=== PATIENT | female | born 1950 | race Caucasian/White ===

== ENCOUNTER → 2016-08-29 | Outpatient (CLI) | payer OTHER ==
[~2016-08-29] MED LIST: CALC1TAB62 PO; CALC1TAB9 PO; CALC500C3 PO; IBUP1CAP9 PO; MAGN200T3; MULT-506 PO; OMEP20TA PO
[2016-08-29 10:00] LABS: BASO % 1.4 %; BASO ABS # 0.09 K/uL (0-0.2); COMPLETE YES; EOS % 2.9 %; HEMATOCRIT 44.6 % (37-47); IG% 0.2 %; LYMPH % 37.1 %; LYMPH ABS # 2.34 K/uL (1.2-3.4); MEAN CELL VOLUME 94.9 fL (80-100); MEAN CORPUSCULAR HEMOGLOBIN 32.1 pg (25-34); MEAN CORPUSCULAR HGB CONC 33.9 g/dl (32-36); MEAN PLATELET VOLUME 10.6 fL (7.4-10.4); MONO % 4.8 %; NEUT % 53.6 %; PLATELET COUNT 257 K/uL (130-400)
[2016-08-29 10:33] LABS: ESTIMATED AVERAGE GLUCOSE 111 mg/dl; HA1C FLAG Normal (Normal)
[2016-08-29 12:56] LABS: ALKALINE PHOSPHATASE 83 U/L (45-117); ALT/SGPT 30 U/L (12-78); AST/SGOT 22 U/L (15-37); BLOOD UREA NITROGEN 11 mg/dl (7-18); BUN/CREATININE RATIO 15.1 (10-20); C-REACTIVE PROTEIN < 0.29 mg/dl (0-0.29); CALCIUM 8.8 mg/dl (8.5-10.1); CARBON DIOXIDE 28 mmol/L (21-32); CHLORIDE 110 mmol/L (98-107); CHOLESTEROL 233 mg/dl (0-200); CREATININE 0.76 mg/dl (0.60-1.20); GLUCOSE 90 mg/dl (70-99); POTASSIUM 4.5 mmol/L (3.5-5.1); SODIUM 144 mmol/L (136-145); TRIGLYCERIDES 145 mg/dl (0-150); VERY LOW DENSITY LIPOPROT CALC 29 mg/dl
[2016-08-29 13:04] LABS: ALB/GLOB RATIO 0.9 (0.9-2); HDL CHOLESTEROL 47 mg/dl; LDL CHOLESTEROL CALCULATED 157 mg/dl
== END | disposition home or self-care (01) ==
LOC: C.LAB 08:43
PROVIDERS: ATTEND Family Medicine
DX: R73.09 Other abnormal glucose (principal); E55.9 Vitamin D deficiency, unspecified; D51.9 Vitamin B12 deficiency anemia, unspecified

== ENCOUNTER → 2016-10-23 | Outpatient (CLI) | payer OTHER ==
--- NOTE | 2016-10-24 12:19 | MAMMOGRAPHY REPORT ---
BILATERAL DIGITAL SCREENING MAMMOGRAM TOMOSYNTHESIS WITH CAD: 10/23/2016 CLINICAL HISTORY: Routine screening. Patient has no complaints. TECHNIQUE: Breast tomosynthesis in addition to standard 2D mammography was performed. Current study was also evaluated with a Computer Aided Detection (CAD) system. COMPARISON: Comparison is made to exams dated: 10/23/2015 mammogram, 10/19/2014 mammogram, 10/18/2013 m ammogram, 10/15/2012 ultrasound, 10/15/2012 mammogram, and 10/13/2011 mammogram - [facility] enter. BREAST COMPOSITION: The tissue of both breasts is heterogeneously dense, which may obscure small mas ses. FINDINGS: There are decreasing masses in the left breast. A 15 mm round circumscribed mass in the ri ght upper outer quadrant has been fluctuating in size compared to prior mammograms, and previously do cumented to represent a simple cyst on ultrasound. There is a stable grouping of round microcalcific ations in the right upper outer quadrant, which appears similar dating back to at least 10/04/2007, t herefore likely benign. Other scattered and loose groupings of calcifications are stable bilaterally . There are several other subcentimeter circumscribed masses scattered in the breasts, most likely b enign fibrocystic change. No suspicious spiculated or irregular mass, architectural distortion or cl uster of new, suspicious microcalcifications is seen. IMPRESSION: ACR BI-RADS CATEGORY 1: NEGATIVE There is no mammographic evidence of malignancy. A 1 year screening mammogram is recommended. The pa tient will receive written notification of the results. Approximately 10% of breast cancers are not detected with mammography. A negative mammographic report should not delay biopsy if a clinically suggestive mass is present. Randi Mc M.D. ay/:10/23/2016 17:11:07 Hand Molder Meat: Diamond NAVARRO(Mary)(Jan), [facility] letter sent: Normal 1/2 BI-RADS Code: ACR BI-RADS Category 1: Negative
== END | disposition home or self-care (01) ==
LOC: C.MAMM 12:02
PROVIDERS: ATTEND Obstetrics & Gynecology
DX: Z12.31 Encounter for screening mammogram for malignant neoplasm of breast (principal)

== ENCOUNTER → 2016-12-04 | Outpatient (CLI) | payer OTHER ==
[2016-12-04 10:34] LABS: BASO % 1.1 %; BASO ABS # 0.08 K/uL (0-0.2); COMPLETE YES; EOS % 3.7 %; IG% 0.1 %; LYMPH % 33.6 %; LYMPH ABS # 2.35 K/uL (1.2-3.4); MEAN CORPUSCULAR HEMOGLOBIN 33.3 pg (25-34); MEAN PLATELET VOLUME 10.7 fL (7.4-10.4); MONO % 4.3 %; NEUT % 57.2 %; PLATELET COUNT 245 K/uL (130-400); RED BLOOD COUNT 4.63 M/uL (4.2-5.4); WHITE BLOOD COUNT 6.99 K/uL (4.8-10.8)
[2016-12-04 10:49] LABS: ALB/GLOB RATIO 0.9 (0.9-2); ALT/SGPT 27 U/L (12-78); BLOOD UREA NITROGEN 14 mg/dl (7-18); BUN/CREATININE RATIO 17.8 (10-20); CALCIUM 9.4 mg/dl (8.5-10.1); CARBON DIOXIDE 29 mmol/L (21-32); CHLORIDE 107 mmol/L (98-107); CREATININE 0.76 mg/dl (0.60-1.20); GLUCOSE 92 mg/dl (70-99); POTASSIUM 4.4 mmol/L (3.5-5.1); SODIUM 141 mmol/L (136-145)
[2016-12-04 10:55] LABS: ALKALINE PHOSPHATASE 88 U/L (45-117); AST/SGOT 20 U/L (15-37); FERRITIN 302.2 ng/ml (8.0-388.0); RHEUMATOID FACTOR < 10.0 U/mL (0-15); TOTAL IRON BINDING CAPACITY 268 mcg/dl (250-450)
[2016-12-06 01:53] LABS: GLIADIN DEAMIDATED IgA AB 9 UNITS (<20); GLIADIN DEAMIDATED IgG AB 4 UNITS (<20)
[2016-12-10 04:30] LABS: 18KDIGG BAND NONREACTIVE (NONREACTIVE); 23KDIGG BAND NONREACTIVE (NONREACTIVE); 23KDIGM BAND NONREACTIVE (NONREACTIVE); 28KDIGG BAND NONREACTIVE (NONREACTIVE); 30KDIGG BAND NONREACTIVE (NONREACTIVE); 39KDIGG BAND NONREACTIVE (NONREACTIVE); 39KDIGM BAND NONREACTIVE (NONREACTIVE); 41KDIGG BAND NONREACTIVE (NONREACTIVE); 41KDIGM BAND NONREACTIVE (NONREACTIVE); 45KDIGG BAND NONREACTIVE (NONREACTIVE); 58KDIGG BAND NONREACTIVE (NONREACTIVE); 66KDIGG BAND NONREACTIVE (NONREACTIVE); 93KDIGG BAND NONREACTIVE (NONREACTIVE)
--- NOTE | 2016-12-17 10:32 | CODING QUERY MEDICAL NECESSITY ---
SUPPORTING DIAGNOSIS NEEDED Dr. Lunsford, A supporting diagnosis is required for the test/procedure performed on this patient in order for us to be reimbursed by the patient's insurance. Please provide a supporting diagnosis for the following test/procedure listed below next to the test name along with your signature. *If there is no additional diagnosis for this patient that would support the following test/procedure please document that below next to the test/procedure. Test(s)/Procedure(s) that require a supporting diagnosis: * ([id number]) B12 VITAMIN LEVEL DIAGNOSIS: DATE OF SERVICE: 12/04/16 Provider Signature: Date: Thank you Demetrius Ramirez [facility] Information Management Once completed, please kindly fax back to [phone] For questions please call [phone]
== END | disposition home or self-care (01) ==
LOC: C.LAB 09:08
PROVIDERS: ATTEND Family Medicine
DX: R53.83 Other fatigue (principal); M25.50 Pain in unspecified joint

== ENCOUNTER → 2016-12-25 | Day surgery (SDC) | payer OTHER ==
[~2016-12-25] VITALS: Ht 160 cm; Wt 97.2 kg
[~2016-12-25] MED LIST changes: +ATROPINE SULFATE 0.1 MG/ML 5ML SYR IV PRN; +DEXAMETHASONE SOD INJ 4 MG/ML VIAL ONE; +EpHEDrine SULFATE INJ 50 MG/ML AMP IV PRN; +FENTANYL CITRATE INJ 50 MCG/1 ML 2 ML VIAL IV PRN; +FENTANYL CITRATE INJ 50 MCG/1 ML 2 ML VIAL ONE; +IBUPROFEN 600 MG TAB PO PRN; +KETOROLAC TROMETHAMINE 30 MG/ML VIAL IV. PRN; +KETOROLAC TROMETHAMINE 30 MG/ML VIAL ONE; +LABETALOL HCL IV 5 MG/ML 20ML IV ONE; +LACTATED RINGER'S 1000ML 1,000 ML IV SCH; +LIDOCAINE HCL 2% 2 ML VIAL (20MG/ML) ONE; +ONDANSETRON INJ 2 MG/ML 2 ML VIAL IV PRN; +ONDANSETRON INJ 2 MG/ML 2 ML VIAL ONE; +OXYCODONE/ACETAMINOPHEN 5-325 TAB PO PRN; +PROMETHAZINE HCL INJ 6.25 MG in SODIUM CHLORIDE 0.9% 50ML 50 ML IV PRN; +PROPOFOL IV EMULSION 10 MG/ML 20 ML VIAL IV ONE; +RANITIDINE HCL 25 MG/ML INJ ONE; +SODIUM CHLORIDE 0.9% 1000ML 1,000 ML IV SCH
[2016-12-25 06:29] VITALS: Ht 160 cm; Wt 97.2 kg
--- NOTE | 2016-12-25 07:05 | History & Physical Bridge - SC ---
H&P Re-Evaluation Bridge Note: I have examined the patient, reviewed the History & Physical and in the interval since the performance of the History & Physical I have noted the following changes of clinical significance: No changes noted Did have diarrhea in response to the cytotec. No bleeding.
--- NOTE | 2016-12-25 07:41 | [facility] Operative Report ---
Operative Report Operative Date Dec 25, 2016. Pre-Operative Diagnosis Post Menopausal Bleeding, Abnormal Ultrasound of Uterus Post-Operative Diagnosis same, endometrial polyp Procedure(s) Performed #1 dilation and curettage #2 hysteroscopy #[address] Rick Jackson Cavity Pump Operator Surgeon(s) 0 Estimated Blood Loss 0 Findings Uterus sounds to 8 cm. Normal tubal ostia bilaterally. Saline hysteroscopic fluid deficit 85 cc. Uterine cavity with evidence of polyps at the fundus. Fluids (cc crystalloids) 500 Specimens Endometrial curettings and polyp Drains none Anesthesia Gen. Complication(s) None Disposition Recovery Room / PACU Indications 66-year-old with postmenopausal bleeding and ultrasound suggestive of possibly 2 polyps who desired definitive surgical management. Description of Procedure Patient taken to the operating room and identified. After adequate general anesthesia was obtained she space in the dorsolithotomy position and prepped and draped in the usual sterile fashion. The bladder was drained for clear yellow urine. Weighted speculum and anterior retractor were used to visualize the cervix which was grasped with anterior lip with an Allis clamp. The cervix was sequentially dilated using Hegar dilators to 23. The hysteroscope primed with saline media was gently placed through cervical os into the uterine cavity with the findings as noted above. Using a sharp curet as well as a polyp forcep the uterus was cleared of its contents. This was confirmed using the hysteroscope and camera. All the specimens were sent to pathology. At this point procedure was terminated. All vaginal and she was removed. The patient was returned to the supine position. She was working for anesthesia and transferred to the recovery room in stable condition. All sponge lap and needle counts were correct 2. I attest to the content of the Intraoperative Record and any orders documented therein. Any exceptions are noted below.
--- NOTE | 2016-12-25 07:43 | Discharge Instructions ---
Discharge Instructions Date of Service Dec 25, 2016. Admission Reason for Admission: Post Menopausal Bleeding, Abnormal Us Of Uterus Discharge Discharge Diagnosis / Problem: after surgery Discharge Goals Goal(s): Routine recovery after surgery Activity Recommendations Activity Limitations: as noted below . Instructions / Follow-Up Instructions / Follow-Up ACTIVITY RECOMMENDATIONS: * Avoid tampons, douching, hot tubs, pools, and intercourse until bleeding has stopped. * May shower as usual. * No strenuous activity for 24-48 hours. After 24-48 hours, you may do anything you feel like doing (driving and sports are okay). SPECIAL CARE INSTRUCTIONS: Special Diet: * Mild nausea may occur in the immediate post-operative period. * Take clear liquids such as tea, cola or bouillon until all nausea has subsided; you may then resume your normal diet. Special Care: * Light bleeding and vaginal spotting can last from a few days to 3-4 weeks. Call your doctor if bleeding becomes heavier than the heaviest part of your period. * Check your temperature twice a day for one week. If it goes above 100.4 degrees Fahrenheit (38.0 Celsius), notify your doctor. * Call your doctor's office for an appointment for 2-4 weeks after your surgery. FOLLOW-UP VISIT: Call your doctor's office for an appointment for 2-4 weeks after your surgery. Current Hospital Diet Patient's current hospital diet: Discharge Diet Recommended Diet: Regular Diet Procedures Procedures Performed: #1 dilation and curettage #2 hysteroscopy #3 endometrial polypectomy Pending Studies Studies pending at discharge: yes List of pending studies: pathology Medical Emergencies . Who to Call and When: Medical Emergencies: If at any time you feel your situation is an emergency, please call 911 immediately. . Non-Emergent Contact Non-Emergency issues call your: [employer] Tractor Operator . . "Provider Documentation" section prepared by Kate Jackson. . VTE Core Measure Inpt VTE Proph given/why not?: Treatment not indicated
--- NOTE | 2016-12-25 08:25 | Anesthesiology Progress Note ---
Anesthesia Post Op Note Date & Time Dec 25, 2016 at 08:25 Vital Signs Pain Intensity: 0 Vital Signs Past 12 Hours Date Time Temp Pulse Resp B/P (MAP) Pulse Ox O2 Delivery O2 Flow Rate FiO2 12/25/16 08:21 166/91 12/25/16 08:18 85 13 94 12/25/16 08:18 85 13 12/25/16 08:17 37.2 83 12 181/89 96 Room Air 12/25/16 08:16 167/101 12/25/16 08:13 89 23 96 12/25/16 08:13 89 23 12/25/16 08:11 181/89 12/25/16 08:08 84 12 96 12/25/16 08:08 83 12 12/25/16 08:06 170/84 12/25/16 08:03 81 21 99 12/25/16 08:03 81 21 12/25/16 08:01 168/91 12/25/16 07:58 88 15 99 12/25/16 07:58 88 15 12/25/16 07:57 80 11 98 12/25/16 07:57 80 11 12/25/16 07:56 176/94 12/25/16 07:52 83 14 12/25/16 07:52 14 12/25/16 07:51 174/95 12/25/16 07:47 83 14 12/25/16 07:47 84 14 97 12/25/16 07:46 171/98 12/25/16 07:43 174/97 12/25/16 07:42 84 12/25/16 07:42 37.0 84 12 174/97 97 Diffusion Mask 6 12/25/16 07:42 84 97 12/25/16 06:35 37 88 16 169/96 (120) 97 Room Air Notes Mental Status: alert / awake / arousable, participated in evaluation Pt Amnestic to Procedure: Yes Nausea / Vomiting: adequately controlled Pain: adequately controlled Airway Patency, RR, SpO2: stable & adequate BP & HR: stable & adequate Hydration State: stable & adequate Anesthetic Complications: no major complications apparent
[2016-12-25 08:29] VITALS: TEMP 36.8
[2016-12-25 08:57] VITALS: BP 168/83; PULSE 84; O2SAT 94
== END | disposition home or self-care (01) ==
LOC: X.SURG 06:17
PROVIDERS: ATTEND Obstetrics & Gynecology
DX: N95.0 Postmenopausal bleeding (principal); N84.0 Polyp of corpus uteri; R93.5 Abnormal findings on diagnostic imaging of other abdominal regions, including retroperitoneum; M19.90 Unspecified osteoarthritis, unspecified site; K21.0 Gastro-esophageal reflux disease with esophagitis; E78.00 Pure hypercholesterolemia, unspecified; Z83.6 Family history of other diseases of the respiratory system; Z82.49 Family history of ischemic heart disease and other diseases of the circulatory system; Z80.0 Family history of malignant neoplasm of digestive organs

== ENCOUNTER → 2017-05-19 | Outpatient (CLI) | payer OTHER ==
[~2017-05-19] MED LIST changes: -ATROPINE SULFATE 0.1 MG/ML 5ML SYR IV PRN; -DEXAMETHASONE SOD INJ 4 MG/ML VIAL ONE; -EpHEDrine SULFATE INJ 50 MG/ML AMP IV PRN; -FENTANYL CITRATE INJ 50 MCG/1 ML 2 ML VIAL IV PRN; -FENTANYL CITRATE INJ 50 MCG/1 ML 2 ML VIAL ONE; -IBUPROFEN 600 MG TAB PO PRN; -KETOROLAC TROMETHAMINE 30 MG/ML VIAL IV. PRN; -KETOROLAC TROMETHAMINE 30 MG/ML VIAL ONE; -LABETALOL HCL IV 5 MG/ML 20ML IV ONE; -LACTATED RINGER'S 1000ML 1,000 ML IV SCH; -LIDOCAINE HCL 2% 2 ML VIAL (20MG/ML) ONE; -ONDANSETRON INJ 2 MG/ML 2 ML VIAL IV PRN; -ONDANSETRON INJ 2 MG/ML 2 ML VIAL ONE; -OXYCODONE/ACETAMINOPHEN 5-325 TAB PO PRN; -PROMETHAZINE HCL INJ 6.25 MG in SODIUM CHLORIDE 0.9% 50ML 50 ML IV PRN; -PROPOFOL IV EMULSION 10 MG/ML 20 ML VIAL IV ONE; -RANITIDINE HCL 25 MG/ML INJ ONE; -SODIUM CHLORIDE 0.9% 1000ML 1,000 ML IV SCH
[2017-05-19 09:31] LABS: BASO % 1.3 %; BASO ABS # 0.08 K/uL (0-0.2); EOS ABS # 0.24 K/uL (0-0.5); HEMATOCRIT 43.8 % (37-47); LYMPH % 40.8 %; LYMPH ABS # 2.45 K/uL (1.2-3.4); MEAN CELL VOLUME 93.4 fL (80-100); MEAN CORPUSCULAR HGB CONC 34.2 g/dl (32-36); MEAN PLATELET VOLUME 10.8 fL (7.4-10.4); MONO % 5.3 %; MONO ABS # 0.32 K/uL (0.11-0.59); NEUT % 48.6 %; NEUT ABS # 2.92 K/uL (1.4-6.5); PLATELET COUNT 245 K/uL (130-400); RED CELL DISTRIBUTION WIDTH CV 12.9 % (11.5-14.5); RED CELL DISTRIBUTION WIDTH SD 43.9 fL (36.4-46.3); WHITE BLOOD COUNT 6.01 K/uL (4.8-10.8)
[2017-05-19 09:46] LABS: HEMOGLOBIN A1C 5.4 % (4.5-5.6)
[2017-05-19 09:48] LABS: ALBUMIN 3.4 gm/dl (3.4-5.0); ALKALINE PHOSPHATASE 77 U/L (45-117); ALT/SGPT 29 U/L (12-78); AST/SGOT 19 U/L (15-37); BLOOD UREA NITROGEN 9 mg/dl (7-18); CALCIUM 8.8 mg/dl (8.5-10.1); CARBON DIOXIDE 28 mmol/L (21-32); CHOLESTEROL 212 mg/dl (0-200); GLUCOSE 91 mg/dl (70-99); LDL CHOLESTEROL CALCULATED 139 mg/dl; POTASSIUM 4.2 mmol/L (3.5-5.1); SODIUM 141 mmol/L (136-145); TOTAL PROTEIN 7.1 gm/dl (6.4-8.2); URIC ACID 4.2 mg/dl (2.6-7.2)
[2017-05-19 09:57] LABS: TRANSFERRIN 181 mg/dl (200-360)
== END | disposition home or self-care (01) ==
LOC: C.LAB 08:22
PROVIDERS: ATTEND Family Medicine
DX: E88.81 Metabolic syndrome and other insulin resistance (principal); E55.9 Vitamin D deficiency, unspecified; D51.9 Vitamin B12 deficiency anemia, unspecified; E78.9 Disorder of lipoprotein metabolism, unspecified; R53.83 Other fatigue

== ENCOUNTER → 2017-05-25 | Outpatient (CLI) | payer OTHER ==
--- NOTE | 2017-05-25 14:59 | DIAGNOSTIC IMAGING REPORT ---
PELVIS ONE VIEW, LEFT HIP 2 VIEWS HISTORY: Fall. Left hip pain. COMPARISON: None. FINDINGS: There is no fracture or dislocation. Soft tissues are unremarkable. Degenerative changes within the bilateral sacroiliac joints. The sacrum appears intact. IMPRESSION: No fracture or dislocation within the pelvis or hips. Electronically signed by: Dio Miller M.D. 05/25/2017 2:58 PM Dictated Date/Time: 05/25/2017 2:57 PM
== END | disposition home or self-care (01) ==
LOC: C.RAD 14:34
PROVIDERS: ATTEND Family Medicine
DX: M25.552 Pain in left hip (principal); W19.XXXA Unspecified fall, initial encounter

== ENCOUNTER → 2017-06-15 | Outpatient (CLI) | payer OTHER | END | disposition home or self-care (01) | LOC: C.LABSPEC 17:57 | PROVIDERS: ATTEND Obstetrics & Gynecology | DX: R30.0 Dysuria (principal) ==

== ENCOUNTER → 2017-10-26 | Outpatient (CLI) | payer OTHER ==
[~2017-10-26] MED LIST changes: -CALC1TAB62 PO; -CALC500C3 PO; -IBUP1CAP9 PO; +IBUP200C80 PO; -MAGN200T3; -MULT-506 PO; +Q NASAL; +SERT25TA PO
--- NOTE | 2017-10-27 07:32 | MAMMOGRAPHY REPORT ---
BILATERAL DIGITAL SCREENING MAMMOGRAM TOMOSYNTHESIS WITH CAD: 10/26/2017 CLINICAL HISTORY: Routine screening. Patient has no complaints. TECHNIQUE: The study was acquired using full field digital technology and interpreted from soft copy. Breast tomosynthesis in addition to standard 2D mammography was performed. Current study was also ev aluated with a Computer Aided Detection (CAD) system. COMPARISON: Comparison is made to exams dated: 10/23/2016 mammogram, 10/23/2015 mammogram, 10/19/2014 m ammogram, 10/18/2013 mammogram, 10/15/2012 ultrasound, and 10/15/2012 mammogram - [facility]. BREAST COMPOSITION: The tissue of both breasts is heterogeneously dense, which may obscure small mass es. FINDINGS: There are multiple bilateral circumscribed masses in the breasts, which is a typically otf gn mammographic pattern. Many of the masses have decreased in size comparing to prior exams, suggest ing fluctuating cysts. There are stable benign-appearing microcalcifications in each upper outer anna drant. No new suspicious mass, architectural distortion or cluster of microcalcifications is seen. IMPRESSION: ACR BI-RADS CATEGORY 1: NEGATIVE There is no mammographic evidence of malignancy. A 1 year screening mammogram is recommended.( 019) The patient will receive written notification of the results. Some breast cancers are not detected with mammography. A negative mammographic report should not margie y biopsy if a clinically suggestive mass is present. Randi Mc M.D. ay/:10/26/2017 14:24:29 Seed Cleaner Operator: RT Celestino(R)(M), [facility] letter sent: Normal 1/2 BI-RADS Code: ACR BI-RADS Category 1: Negative
== END | disposition home or self-care (01) ==
LOC: C.MAMM 12:21
PROVIDERS: ATTEND Obstetrics & Gynecology
DX: Z12.31 Encounter for screening mammogram for malignant neoplasm of breast (principal)

== ENCOUNTER → 2017-11-16 | Outpatient (CLI) | payer OTHER ==
[2017-11-16 12:27] LABS: BASO ABS # 0.07 K/uL (0-0.2); EOS % 3.5 %; EOS ABS # 0.24 K/uL (0-0.5); HEMATOCRIT 40.4 % (37-47); HEMOGLOBIN 14.1 g/dL (12.0-16.0); IG# 0.01 K/uL (0.00-0.02); LYMPH ABS # 2.13 K/uL (1.2-3.4); MEAN CELL VOLUME 94.2 fL (80-100); MEAN CORPUSCULAR HEMOGLOBIN 32.9 pg (25-34); MEAN CORPUSCULAR HGB CONC 34.9 g/dl (32-36); MEAN PLATELET VOLUME 10.8 fL (7.4-10.4); MONO % 5.8 %; NEUT % 58.6 %; NEUT ABS # 4.02 K/uL (1.4-6.5); PLATELET COUNT 296 K/uL (130-400); RED CELL DISTRIBUTION WIDTH CV 12.9 % (11.5-14.5); WHITE BLOOD COUNT 6.87 K/uL (4.8-10.8)
[2017-11-16 12:51] LABS: HEMOGLOBIN A1C 5.4 % (4.5-5.6)
[2017-11-16 13:13] LABS: ALBUMIN 3.4 gm/dl (3.4-5.0); ALKALINE PHOSPHATASE 87 U/L (45-117); ALT/SGPT 25 U/L (12-78); AST/SGOT 18 U/L (15-37); BLOOD UREA NITROGEN 13 mg/dl (7-18); CALCIUM 8.8 mg/dl (8.5-10.1); CARBON DIOXIDE 24 mmol/L (21-32); CHOLESTEROL 246 mg/dl (0-200); CREATININE 0.81 mg/dl (0.60-1.20); GLUCOSE 90 mg/dl (70-99); LDL CHOLESTEROL CALCULATED 169 mg/dl; POTASSIUM 4.1 mmol/L (3.5-5.1); SODIUM 139 mmol/L (136-145); TOTAL PROTEIN 7.2 gm/dl (6.4-8.2); TRANSFERRIN 191 mg/dl (200-360); URIC ACID 4.5 mg/dl (2.6-7.2)
== END | disposition home or self-care (01) ==
LOC: C.LAB 09:42
PROVIDERS: ATTEND Family Medicine
DX: R73.09 Other abnormal glucose (principal); E55.9 Vitamin D deficiency, unspecified; D51.9 Vitamin B12 deficiency anemia, unspecified; E78.9 Disorder of lipoprotein metabolism, unspecified; R53.83 Other fatigue

== ENCOUNTER 2024-08-18 11:57 | Inpatient (IN) ==
--- NOTE | 2024-08-18 12:24 | Emergency Department Note ---
Impression & Plan Ambulatory dysfunction, Left knee pain ED Provider Note NAME: JAXON MARCH AGE: 74 SEX: F : 1950 ARRIVES VIA: Ambulance INFORMANT: [Patient] ED PROVIDER(S): [Sandro Dsouza MD] CHIEF COMPLAINT: Knee pain HISTORY OF PRESENT ILLNESS: Patient is a 74-year-old female who states that she has been having left knee pain now for about 12 days. She has been doing some home PT. In the last week, the pain has worsened. The pain is primarily in the back of the left knee. She spoke with her doctor's office and was told to present for an ultrasound to rule out DVT. She states that she was putting on her shoes prior to arrival and lifted her left leg over her right leg. She had a sudden snap felt in the left knee and had severe pain. She presents by ambulance. There was no fall. PMHx/PSHx/Social Hx: See Below PHYSICAL EXAM: GENERAL: Patient is in no acute distress. HEENT: No acute trauma, normocephalic atraumatic, mucous membranes moist, no nasal congestion. EXTREMITIES: No cyanosis. There is pain with movement of the left knee, there is no gross deformity. She is mildly diffusely tender. No evidence for distal left lower extremity neurovascular compromise. The left leg is swollen somewhat but fairly similar to the right. NEUROLOGIC: Oriented x 3, no acute motor or sensory deficits, no focal weakness. SKIN: No jaundice, no diaphoresis. DIFFERENTIAL DIAGNOSIS: Fracture, sprain, strain, hemarthrosis, tendon or ligamentous injury, DVT, among others. EMERGENCY DEPARTMENT PROCEDURES: MEDICAL DECISION MAKING: The patient presents with severe left knee pain after trying to put on her shoes. The pain came on quickly and was severe and was associated with a snapping sensation. She had been having some difficulty with the left knee for a week or so prior to this acute discomfort. On exam, there was no cellulitis. There was no evidence of for left knee dislocation. No evidence for left lower extremity neurovascular compromise. The patient was given a dose of oral losartan, 25 mg. This was given to help control her blood pressure. She received IV Toradol and IV Tylenol. She was given an ice pack. Left knee film does not show any obvious fracture. No large joint effusion. Left leg ultrasound does not show DVT. Left knee CT does show some arthritis but there was no significant finding on the CT that would explain her discomfort. The patient is unable to ambulate as a result of the severe pain. She is not safe for discharge home. She will require a hospital stay, pain control and orthopedic consult. I spoke with the patient and case management, the on-call hospitalist was consulted. Currently, the cause for her severe pain and inability ambulate is unclear. Prior/Outside records/notes reviewed: Today's EMS notes describing her presentation and transport to this hospital. Imaging/x-ray results per my interpretation: Films of the left knee do not show any obvious fracture or dislocation. There is no large joint effusion. Chronic Medical/Social conditions affecting care: Advanced age. Care/Management discussed with: Case management and the on-call hospitalist. Level of care consideration(s): After review of the information above and other included data: --I believe the patient requires escalation of care to admission DISPOSITION: Admission Past Med/Surg History Problem List Left knee pain (Acute) Ambulatory dysfunction (Acute) Left knee DJD Left knee pain Ruptured Bakers cyst Breast lump Paroxysmal SVT (supraventricular tachycardia) Situational stress Metabolic syndrome Hypertension Knee pain, acute Recurrent urinary tract infection GERD (gastroesophageal reflux disease) (Acute) Hyperlipidemia Supraventricular tachycardia, paroxysmal MGUS (monoclonal gammopathy of unknown significance) PVCs (premature ventricular contractions) Osteopenia Gait instability Mitral regurgitation Hemochromatosis Fatigue Situational stress Anxiety Urinary incontinence Synovitis Macular degeneration Lumbar spondylosis Cervical disc disease Bilateral carotid artery disease Degenerative arthritis of knee, bilateral Vaginal atrophy Bursitis of hip, right Palpitations LVH (left ventricular hypertrophy) 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 Obesity Medical History Cataract Near syncope Knee injury Fall Impaired glucose tolerance Urinary tract infection Diastolic dysfunction Vaginal lesion Endometrial polyp TSH excess Hypertensive urgency Hypercholesterolemia Allergic rhinitis Osteoarthritis Surgical History History of bilateral cataract extraction H/O foot surgery History of tooth extraction History of dilatation and curettage Family History Mother Depression Anxiety AA (alcohol abuse) Hypertension COPD (chronic obstructive pulmonary disease) Father Coronary heart disease, Onset Age: 49 Depression Bladder cancer Alcoholism /alcohol abuse Myocardial infarction Dyslipidemia Uncle Colorectal cancer Grandmother (Maternal) Diabetes Osteoarthritis Grandmother (Paternal) Stroke Aunt Heart disease Brother Parkinson disease Hypertension Brother Suicide Epilepsy Sister Depression Hypertension Denies family history of Ovarian cancer Breast cancer Social History Smoking Status: Never smoker Second Hand Exposure: No; Do You Dip or Chew Tobacco: No; Hx Alcohol Use: No Hx Substance Use: No Preferred Language: Russian Communication Ability: Effective Visual Impairment: Diminished Hearing Ability: Normal Lead 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 Required: No Beliefs That Will Affect Care: None marital status: Current Living Situation: Spouse current occupational status: retired How many Children do You have: 2 Other Information That Helps Us Care for You: No Feels Safe at Home: Yes Safety Concerns: Feels Safe At This Time Childhood Exposure to Second-Hand Smoke: Yes Diet: regular caffeine: Yes Dental Care, Regularly: Yes Physical Activity Frequency: 5-6 Times per Week Seatbelt Use: always Sunscreen Use: Yes Assistive Devices: None Allergies Allergies Allergy/AdvReac Type Severity Reaction Status Date / Time Sulfa (Sulfonamide Allergy Intermediate SWELLING/ Verified 08/18/24 15:46 Antibiotics) ITCHY alprazolam Allergy Unknown Unknown Verified 08/18/24 15:46 Penicillins Allergy Unknown PER PT Verified 08/18/24 15:46 "TESTED NEG, ABLE TO TAKE" erythromycin base AdvReac Intermediate VOMITING Verified 08/18/24 15:46 levothyroxine AdvReac Intermediate palpitation Verified 08/18/24 15:46 s Macrolide Antibiotics AdvReac Intermediate VOMITING Verified 08/18/24 15:46 pravastatin AdvReac Intermediate joint/ Verified 08/18/24 15:46 muscle pain and cramping ciprofloxacin AdvReac Unknown Unknown Verified 08/10/24 11:51 hydrochlorothiazide AdvReac Unknown Unknown Verified 08/10/24 11:51 [From Aldactazide] lisinopril AdvReac Unknown Unknown Verified 08/10/24 11:51 niacin AdvReac Unknown Unknown Verified 08/10/24 11:51 risedronate sodium AdvReac Unknown Unknown Verified 08/10/24 11:51 [From Actonel] simvastatin AdvReac Unknown Unknown Verified 08/10/24 11:51 spironolactone AdvReac Unknown Unknown Verified 08/10/24 11:51 [From Aldactazide] Home Meds Home Medications Medication Instructions Recorded Confirmed calcium 315 mg (as 1 tab PO DAILY ##0 12/25/16 08/18/24 citrate)-vitamin D3 6.25 mcg (250 unit) tablet [id number] 5 mg-zeaxanth 1 cap PO DAILY 04/03/20 08/18/24 1 mg-bilberry 7.5 mg-herbal capsule ([employer] Formula) aspirin 81 mg tablet,delayed 81 mg PO QDD 04/10/20 08/18/24 release ibuprofen 200 mg tablet (Advil) 200 mg PO QAM 12/06/20 08/18/24 calcium carbonate (Tums) 400 mg PO HS dyspepsia 04/09/21 08/18/24 cephalexin 500 mg capsule 500 mg PO BID PRN RECURRENT UTI'S 08/18/24 08/18/24 cholecalciferol (vitamin D3) 25 75 mcg PO DAILY 08/18/24 08/18/24 mcg (1,000 unit) capsule (Vitamin D3) losartan 25 mg tablet 25 mg PO QAM 08/18/24 08/18/24 rosuvastatin 5 mg tablet (Crestor) 5 mg PO 3XWK 08/18/24 08/18/24 Previous Rx's Medication Instructions Recorded nystatin-triamcinolone 100,000 1 applic topical BID PRN itching 12/12/22 unit/gram-0.1 % topical ointment #15 grams omeprazole 20 mg capsule,delayed 20 mg PO DAILY #90 tabs 08/08/24 release metoprolol tartrate 25 mg tablet 12.5 mg (1/2 x 25 mg) PO BID 08/10/24 palpitations #60 tabs Results & Data (ED) Vital Signs Vital Signs - 24 hr 08/18/24 12:07 08/18/24 12:24 08/18/24 12:30 Temperature 37.0 C Temperature Source Oral Pulse Rate 108 H 101 H Pulse Rate [Apical] Respiratory Rate 28 H Respiratory Effort / Characteristics Non-Labored Spontaneous Respiratory Depth Normal Blood Pressure 207/138 H Blood Pressure [Right Arm] 183/108 H Blood Pressure Mean 161 Blood Pressure Mean [Right Arm] 133 Blood Pressure Position Semi-fowlers Blood Pressure Position [Right Arm] Pulse Oximetry 94 Oxygen Delivery Method Room Air Sepsis Recent Fever Within 48 Hours No Sepsis New/Unexplained Change in Mental Status N/A Sepsis Action Taken by Nursing Physician Notified 08/18/24 13:30 08/18/24 15:00 08/18/24 16:03 Temperature Temperature Source Pulse Rate 95 H 91 H Pulse Rate [Apical] 88 Respiratory Rate 18 16 18 Respiratory Effort / Characteristics Respiratory Depth Blood Pressure 172/100 H 178/102 H Blood Pressure [Right Arm] 158/87 H Blood Pressure Mean 124 127 Blood Pressure Mean [Right Arm] 110 Blood Pressure Position Blood Pressure Position [Right Arm] Semi-fowlers Pulse Oximetry 93 92 97 Oxygen Delivery Method Room Air Sepsis Recent Fever Within 48 Hours Sepsis New/Unexplained Change in Mental Status Sepsis Action Taken by Nursing 08/18/24 16:29 Temperature Temperature Source Pulse Rate 88 Pulse Rate [Apical] Respiratory Rate Respiratory Effort / Characteristics Respiratory Depth Blood Pressure Blood Pressure [Right Arm] Blood Pressure Mean Blood Pressure Mean [Right Arm] Blood Pressure Position Blood Pressure Position [Right Arm] Pulse Oximetry Oxygen Delivery Method Sepsis Recent Fever Within 48 Hours Sepsis New/Unexplained Change in Mental Status Sepsis Action Taken by [facility] Medications Current Medication List: was personally reviewed by [facility] Laboratory Data 08/19/24 08:19 08/19/24 08:19 Administered Medications Acetaminophen (Acetaminophen 500 Mg Tab) 1,000 mg PO TID [facility] Stop: 09/17/24 20:59 Last Admin: 08/19/24 08:04 Dose: Not Given Documented By: Admin: 08/18/24 20:12 Dose: 1,000 mg Documented By: CHRIS Calcium Carbonate (Calcium Carbonate 500 Mg Chewable Tab) 400 mg PO HS [facility] Stop: 09/17/24 20:59 Last Admin: 08/18/24 20:11 Dose: 400 mg Documented By: CHRIS Calcium/Vitamin D (Calcium 600mg + Vit D 400 Iu Tab) 1 tab PO DAILY [facility] Stop: 09/18/24 08:59 Last Admin: 08/19/24 08:44 Dose: 1 tab Documented By: CHERYL Ketorolac Tromethamine (Ketorolac Tromethamine 15 Mg/Ml Vial) 15 mg IV Q6H PRN PRN Reason: Pain Stop: 08/23/24 18:35 Last Admin: 08/19/24 04:41 Dose: 15 mg Documented By: ALYCIA Losartan Potassium (Losartan Potassium 25 Mg Tab) 25 mg PO QPM GODWIN Stop: 09/17/24 19:29 Last Admin: 08/18/24 20:11 Dose: Not Given Documented By: Admin: 08/18/24 19:42 Dose: 25 mg Documented By: CHRIS Metoprolol Tartrate (Metoprolol Tartrate 25 Mg Tab) 12.5 mg PO BID GODWIN Stop: 09/17/24 20:59 Last Admin: 08/19/24 08:42 Dose: Not Given Documented By: Admin: 08/18/24 20:11 Dose: Not Given Documented By: CHRIS Multivitamins/Minerals (Cerovite Adv Formula Tab) 1 tab PO DAILY GODWIN Stop: 09/18/24 08:59 Last Admin: 08/19/24 08:43 Dose: 1 tab Documented By: CHERYL Pantoprazole Sodium (Pantoprazole 40 Mg Tab) 40 mg PO DAILY GODWIN Stop: 09/18/24 08:59 Last Admin: 08/19/24 08:44 Dose: 40 mg Documented By: CHERYL Rosuvastatin Calcium (Rosuvastatin Calcium 5 Mg Tab) 5 mg PO MoWeFr@0900 GODWIN Stop: 09/18/24 08:59 Last Admin: 08/19/24 08:44 Dose: 5 mg Documented By: CHERYL Tramadol HCl (Tramadol Hcl 50 Mg Tablet) 50 mg PO Q6H PRN PRN Reason: Pain Stop: 09/17/24 18:35 Last Admin: 08/18/24 22:29 Dose: 50 mg Documented By: CHRIS Vitamin D (Cholecalciferol 25 Mcg (1000 Units) Tab) 75 mcg PO DAILY GODWIN Stop: 09/18/24 08:59 Last Admin: 08/19/24 08:43 Dose: 75 mcg Documented By: CHERYL Discontinued Medications Acetaminophen (Ofirmev) 1,000 mg in 100 mls @ 400 mls/hr IV NOW STA Stop: 08/18/24 12:32 Last Infusion: 08/18/24 12:50 Dose: Infused Documented By: Admin: 08/18/24 12:28 Dose: 400 mls/hr Documented By: MMF Ketorolac Tromethamine (Ketorolac Tromethamine 15 Mg/Ml Vial) 15 mg IV NOW STA Stop: 08/18/24 12:19 Last Admin: 08/18/24 12:28 Dose: 15 mg Documented By: JAZMÍN Ketorolac Tromethamine (Ketorolac Tromethamine 15 Mg/Ml Vial) 15 mg IV NOW ONE Stop: 08/18/24 16:24 Last Admin: 08/18/24 17:15 Dose: 15 mg Documented By: DAVID Losartan Potassium (Losartan Potassium 25 Mg Tab) 25 mg PO NOW STA Stop: 08/18/24 12:19 Last Admin: 08/18/24 12:28 Dose: 25 mg Documented By: JAZMÍN Losartan Potassium (Losartan Potassium 25 Mg Tab) 25 mg PO ONE ONE Stop: 08/19/24 08:16 Last Admin: 08/19/24 08:42 Dose: 25 mg Documented By: CHERYL Pantoprazole Sodium (Pantoprazole 40 Mg Tab) 40 mg PO NOW STA Stop: 08/18/24 19:09 Last Admin: 08/18/24 19:22 Dose: 40 mg Documented By: CHRIS Discharge Plan Visit Data Chief Complaint: Knee Injury/Pain Stated Complaint: KNEE PAIN ED Provider: Sandro Dsouza Discharge Problem: Ambulatory dysfunction, Left knee pain Patient Disposition: Admitted As Inpatient Condition: Fair Discharge Instructions Interventions: ED Discharge Assessment Last Done: 08/18/24 17:50 Discharge Problem: Left knee pain Qualifiers: Chronicity: acute Qualified Code(s): M25.562 - Pain in left knee
[2024-08-18] MEDS: LOSARTAN POTASSIUM 25 MG TAB PO STA (12:28)
[2024-08-18] MEDS: ACETAMINOPHEN 1,000 MG/100 ML VIAL IV STA (12:28)
[2024-08-18] MEDS: KETOROLAC TROMETHAMINE 15 MG/ML VIAL IV STA (12:28)
--- NOTE | 2024-08-18 13:25 | XRay Report ---
XR knee LT 1 or 2V routine CLINICAL HISTORY: pain, twisted COMPARISON: 01/28/2022 FINDINGS: There is mild osteoarthritis. There is a trace joint effusion. No fracture or dislocation. IMPRESSION: No fracture seen. ACT 112: Negative or not required by law. Electronically signed by: Rakesh Palencia M.D. 08/18/2024 1:23 PM
--- NOTE | 2024-08-18 14:56 | CT Scan Report ---
CT knee LT wo con HISTORY: 74 years-old Female severe pain, neg xrays in past acute severe pain of the left knee COMPARISON: Radiographs 08/18/2024 TECHNIQUE: Multiple axial CT images of the left knee were obtained without IV contrast. A dose loweri ng technique was used consistent with the principals of JAMARCUS. FINDINGS: Demineralized appearance of the bones. [id number] medial, mild lateral with moderate patellofem oral compartment osteoarthritis. No acute fracture, dislocation. 4 mm ossification within the posteri or medial joint space on image 40 of the sagittal series may represent a loose body. Tendons, ligamen ts and menisci are not well evaluated by CT technique. There is a small joint effusion. Trace Georges's cyst. Arterial calcifications. Mild nonspecific anterior subcutaneous edema. Superficial venous vari cosities are noted anteriorly. IMPRESSION: 1. No acute fracture or dislocation. 2. Tricompartmental osteoarthritis, moderate within the patellofemoral joint. 3. Small joint effusion. ACT 112: Negative or not required by law. The above report was generated using voice recognition software. It may contain grammatical, syntax o r spelling errors. Electronically signed by: Ramón Bailey M.D. 08/18/2024 2:55 PM
--- NOTE | 2024-08-18 14:59 | Ultrasound Report ---
LEFT LOWER EXTREMITY VENOUS DOPPLER HISTORY: swelling, pain COMPARISON STUDY: None FINDINGS: Duplex and color Doppler evaluation of the deep venous system of the left leg demonstrates no evidence of DVT. The major deep venous channels are patent and compressible. There is no occlusive disease or intraluminal filling defect identified. IMPRESSION: No evidence of DVT . ACT 112: Negative or not required by law. Electronically signed by: Neda Steen M.D. 08/18/2024 2:57 PM
[2024-08-18] MEDS: KETOROLAC TROMETHAMINE 15 MG/ML VIAL IV ONE (17:15)
[2024-08-18] MEDS ORDERED: MELATONIN 3 MG TAB PO PRN (18:36)
[2024-08-18] MEDS ORDERED: NYSTATIN/TRIAMCIN OINT 15 GM TUBE EXT PRN (18:36)
[2024-08-18] MEDS ORDERED: ALUMINUM/MAGNESIUM SUSP 30 ML UDC PO PRN (18:36)
[2024-08-18] MEDS ORDERED: MAGNESIUM HYDROXIDE SUSP 30 ML UDC PO PRN (18:36)
[2024-08-18] MEDS ORDERED: POLYETHYLENE (MIRALAX) 17 GM PACK PO PRN (18:36)
[2024-08-18] MEDS ORDERED: ONDANSETRON INJ 2 MG/ML 2 ML VIAL IV PRN (18:36)
[2024-08-18] MEDS: PANTOprazole 40 MG TAB PO STA (19:22)
[2024-08-18] MEDS: LOSARTAN POTASSIUM 25 MG TAB PO SCH (19:42)
[2024-08-18] MEDS: METOPROLOL TARTRATE 25 MG TAB PO SCH (20:11)
[2024-08-18] MEDS: CALCIUM CARBONATE 500 MG CHEWABLE TAB PO SCH (20:11)
[2024-08-18] MEDS: ACETAMINOPHEN 500 MG TAB PO SCH (20:12)
--- NOTE | 2024-08-18 20:30 | History & Physical Report ---
Date of Service August 18, 2024 Assessment & Plan (1) Paroxysmal SVT (supraventricular tachycardia): (2) Hypertension: (3) Knee pain, acute: (4) GERD (gastroesophageal reflux disease): (5) Hyperlipidemia: (6) Hemochromatosis: Plan Ms. Borja is a 74 y/o female with PMHx of PVCs/PSVT, Hemochromatosis, HTN, HLD, GERD, MGUS, and Chronic B/L Knee Pain who presents to the ED due to L knee pain and ambulatory dysfunction. #L Knee Pain/Ambulatory Dysfunction: -Chronic history of B/L knee pain and has followed with [facility] and has had previous injections. Reports she had some reaction to the injection and was also advised to avoid them per her ophthalmology -Notes progressive worsening knee pain but reports she has been more active doing house cleaning and moving things. When she tried to put her shoes on today she felt a snap and instant pain and difficulty placing weight due to pain. Intermittent numbness from knee to big toe, states she first noticed it just at her bunion. No evidence of foot drop -No evidence of DVT on U/S. CT without fracture or dislocation, tricompartmental osteoarthritis/moderate within the patellofemoral joint, small joint effusion. CT does note a 4 mm ossification within the posterior medial joint space that may represent a loose body, trace georges's cyst, mild nonspecific anterior subcutaneous edema. -Tylenol 1000 mg TID and Toradol PRN; she does use Ibuprofen at home without contraindications; Tramadol for severe pain; ice PRN -Will consult orthopedics to see if any additional imaging or recommendations warranted at this time -- possible MRI to better assess ligaments - no obvious laxity but exam limited due to pain -Will hold on PT/OT until determination of further imaging needs #HTN: -Elevated in the hospital - may be some pain induced. Normally controlled at home; asymptomatic -Takes Losartan 25 mg HS but if BP >140/90 she does take an additional 25 mg with her night dose #PVCs/PSVT: -Stable; Continue PRN Metoprolol -ASA 81 mg daily #HLD: -Continue Rosuvastatin 5 mg MWF #GERD: -Pantoprazole 40 mg daily #Hemachromatosis: -Stable and follows with hematology DVT Prophylaxis: SCDS Code Status: FULL Disposition: Appreciate ortho input if additional imaging warranted. Could do PT/OT after assessment Admission and Anticipated Discharge Date Admission Date: August 18, 2024 History of Present Illness Chief Complaint: L Knee Pain; Ambulatory Dysfunction Primary Care Provider: Fredis Lunsford MD Ms. Borja is a 74 y/o female with PMHx of PVCs/PSVT, Hemochromatosis, HTN, HLD, GERD, MGUS, and Chronic B/L Knee Pain who presents to the ED due to L knee pain and ambulatory dysfunction. Patient reports she has been doing more housework/cleaning over the past few days and noted increasing L knee pain for approx. 10-12 days. She reports she took her to an appointment and had to walk in cold rain and then her symptoms began. She has been doing home PT exercises but they did not seem to help the discomfort. She was attempting to put on her shoes and felt a sudden snap of the L knee and severe pain. Pain is mostly present in the back of the knee with some mild tenderness to palp. Pain is most noticeable with flexion of the knee. She notes intermittent numbness after the snapping sensation. States she first noticed it more at her bunion but states she can feel it at times from the knee to the big toe. No erythema or warmth. No evidence of foot drop. Due to pain she feels she cannot bear weight. No evidence of DVT on U/S. CT without fracture or dislocation, tricompartmental osteoarthritis/moderate within the patellofemoral joint, small joint effusion. CT does note a 4 mm ossification within the posterior medial joint space that may represent a loose body, trace georges's cyst, mild nonspecific anterior subcutaneous edema. Allergies Allergy/AdvReac Type Severity Reaction Status Date / Time Sulfa (Sulfonamide Allergy Intermediate SWELLING/ Verified 08/18/24 15:46 Antibiotics) ITCHY alprazolam Allergy Unknown Unknown Verified 08/18/24 15:46 Penicillins Allergy Unknown PER PT Verified 08/18/24 15:46 "TESTED NEG, ABLE TO TAKE" erythromycin base AdvReac Intermediate VOMITING Verified 08/18/24 15:46 levothyroxine AdvReac Intermediate palpitation Verified 08/18/24 15:46 s Macrolide Antibiotics AdvReac Intermediate VOMITING Verified 08/18/24 15:46 pravastatin AdvReac Intermediate joint/ Verified 08/18/24 15:46 muscle pain and cramping ciprofloxacin AdvReac Unknown Unknown Verified 08/10/24 11:51 hydrochlorothiazide AdvReac Unknown Unknown Verified 08/10/24 11:51 [From Aldactazide] lisinopril AdvReac Unknown Unknown Verified 08/10/24 11:51 niacin AdvReac Unknown Unknown Verified 08/10/24 11:51 risedronate sodium AdvReac Unknown Unknown Verified 08/10/24 11:51 [From Actonel] simvastatin AdvReac Unknown Unknown Verified 08/10/24 11:51 spironolactone AdvReac Unknown Unknown Verified 08/10/24 11:51 [From Aldactazide] Home Medications Medication Instructions Recorded Confirmed Type calcium 315 mg (as 1 tab PO DAILY ##0 12/25/16 08/18/24 History citrate)-vitamin D3 6.25 mcg (250 unit) tablet gzkahprd-kmo-kmebdq 5 mg-zeaxanth 1 cap PO DAILY 04/03/20 08/18/24 History 1 mg-bilberry 7.5 mg-herbal capsule (Prevacus Health Formula) aspirin 81 mg tablet,delayed 81 mg PO QDD 04/10/20 08/18/24 History release ibuprofen 200 mg tablet (Advil) 200 mg PO QAM 12/06/20 08/18/24 History calcium carbonate (Tums) 400 mg PO HS dyspepsia 04/09/21 08/18/24 History nystatin-triamcinolone 100,000 1 applic topical BID PRN itching 12/12/22 08/18/24 Rx unit/gram-0.1 % topical ointment #15 grams omeprazole 20 mg capsule,delayed 20 mg PO DAILY #90 tabs 08/08/24 08/18/24 Rx release metoprolol tartrate 25 mg tablet 12.5 mg (1/2 x 25 mg) PO BID 08/10/24 08/18/24 Rx palpitations #60 tabs cephalexin 500 mg capsule 500 mg PO BID PRN RECURRENT UTI'S 08/18/24 08/18/24 History cholecalciferol (vitamin D3) 25 75 mcg PO DAILY 08/18/24 08/18/24 History mcg (1,000 unit) capsule (Vitamin D3) losartan 25 mg tablet 25 mg PO QAM 08/18/24 08/18/24 History rosuvastatin 5 mg tablet (Crestor) 5 mg PO 3XWK 08/18/24 08/18/24 History Past Med/Surg History Problem List (Updated 08/19/24 @ 09:01 by Elham Marie PA-C) Left knee DJD Left knee pain Ruptured Bakers cyst Breast lump Paroxysmal SVT (supraventricular tachycardia) Situational stress Metabolic syndrome Hypertension Knee pain, acute Recurrent urinary tract infection GERD (gastroesophageal reflux disease) (Acute) Hyperlipidemia Supraventricular tachycardia, paroxysmal MGUS (monoclonal gammopathy of unknown significance) PVCs (premature ventricular contractions) Osteopenia Gait instability Mitral regurgitation Hemochromatosis Fatigue Situational stress Anxiety Urinary incontinence Synovitis Macular degeneration Lumbar spondylosis Cervical disc disease Bilateral carotid artery disease Degenerative arthritis of knee, bilateral Vaginal atrophy Bursitis of hip, right Palpitations LVH (left ventricular hypertrophy) 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 Obesity Medical History Cataract Near syncope Knee injury Fall Impaired glucose tolerance Urinary tract infection Diastolic dysfunction Vaginal lesion Endometrial polyp TSH excess Hypertensive urgency Hypercholesterolemia Autosomal dominant hereditary hemochromatosis Allergic rhinitis GERD (gastroesophageal reflux disease) Osteoarthritis Surgical History History of bilateral cataract extraction H/O foot surgery History of tooth extraction History of dilatation and curettage Family History Mother Depression Anxiety AA (alcohol abuse) Hypertension COPD (chronic obstructive pulmonary disease) Father Coronary heart disease, Onset Age: 49 Depression Bladder cancer Alcoholism /alcohol abuse Myocardial infarction Dyslipidemia Uncle Colorectal cancer Grandmother (Maternal) Diabetes Osteoarthritis Grandmother (Paternal) Stroke Aunt Heart disease Brother Parkinson disease Hypertension Brother Suicide Epilepsy Sister Depression Hypertension Denies family history of Ovarian cancer Breast cancer Social History (Updated 02/02/24 @ 13:28 by Kimberly Nguyen LPN) Smoking Status: Never smoker Second Hand Exposure: No; Do You Dip or Chew Tobacco: No; Hx Alcohol Use: No Hx Substance Use: No Preferred Language: Salvadorean Communication Ability: Effective Visual Impairment: Diminished Hearing Ability: Normal Table Hand Required: No Beliefs That Will Affect Care: None marital status: Current Living Situation: Spouse current occupational status: retired How many Children do You have: 2 Other Information That Helps Us Care for You: No Feels Safe at Home: Yes Safety Concerns: Feels Safe At This Time Childhood Exposure to Second-Hand Smoke: Yes Diet: regular caffeine: Yes Dental Care, Regularly: Yes Physical Activity Frequency: 5-6 Times per Week Seatbelt Use: always Sunscreen Use: Yes Assistive Devices: None Review of Systems Review of Systems: REVIEW OF SYSTEMS General/Constitutional: Denies fever/chills, fatigue, weakness Cardiovascular: Denies chest pain, palpitations Respiratory: Denies cough, SOB, wheezing, orthopnea GI: Denies nausea, vomiting, abdominal pain, constipation, diarrhea, melena/hematochezia : Denies dysuria Musculoskeletal: +L knee pain Neurologic: + intermittent numbness from knee to L big toe Skin: Denies rash Physical Exam Physical Exam: PHYSICAL EXAM General Appearance: WDWN in NAD who is A&O x 3 HEENT: Head is normocephalic/atraumatic; Hearing grossly intact; Mucous membranes moist Neck: Supple; Trachea midline; Neg JVD Heart: RRR with no M/G/R Lungs: CTA in all lung nava bilaterally; Respirations unlabored; Neg accessory muscle use Abdomen: Soft, non-tender, non-distended; Positive BS x 4 quadrants Extremities: Capillary refill < 2 seconds; Neg cyanosis; mild tenderness mostly to medial and posterior palpation of L knee; pain with L knee flexion; no evidence of L foot drop and sensation intact to light touch; bunion to L great toe Neurological: Speech clear; Gross motor/sensory function intact; Neg focal neurologic deficits Psychiatric: Appropriate mood/affect Skin: Normal Color; Warm/Dry Results & Data Results & Data Vital Signs (Past 12 Hours) Vital Signs Temp Pulse Pulse Resp BP BP Pulse Ox 08/18/24 17:36 88 18 174/101 H 92 08/18/24 17:03 88 20 182/109 H 93 08/18/24 16:29 88 08/18/24 16:03 91 H 18 178/102 H 97 08/18/24 15:00 95 H 16 172/100 H 92 08/18/24 13:30 88 18 158/87 H 93 08/18/24 12:30 183/108 H 08/18/24 12:24 101 H 08/18/24 12:07 37.0 C 108 H 28 H 207/138 H 94 O2 Del Method 08/18/24 17:36 08/18/24 17:03 08/18/24 16:29 08/18/24 16:03 08/18/24 15:00 08/18/24 13:30 Room Air 08/18/24 12:30 08/18/24 12:24 08/18/24 12:07 Room Air Diagnostic Findings Knee CT 08/18/24 12:18 CT knee LT wo con HISTORY: 74 years-old Female severe pain, neg xrays in past acute severe pain of the left knee COMPARISON: Radiographs 08/18/2024 TECHNIQUE: Multiple axial CT images of the left knee were obtained without IV contrast. A dose lowering technique was used consistent with the principals of ALARA. FINDINGS: Demineralized appearance of the bones. Gwju-xn-kdlyregz medial, mild lateral with moderate patellofemoral compartment osteoarthritis. No acute fracture, dislocation. 4 mm ossification within the posterior medial joint space on image 40 of the sagittal series may represent a loose body. Tendons, ligaments and menisci are not well evaluated by CT technique. There is a small joint effusion. Trace Georges's cyst. Arterial calcifications. Mild nonspecific anterior subcutaneous edema. Superficial venous varicosities are noted anteriorly. IMPRESSION: 1. No acute fracture or dislocation. 2. Tricompartmental osteoarthritis, moderate within the patellofemoral joint. 3. Small joint effusion. ACT 112: Negative or not required by law. The above report was generated using voice recognition software. It may contain grammatical, syntax or spelling errors. Electronically signed by: Ramón Bailey M.D. 08/18/2024 2:55 PM Knee X-Ray 08/18/24 12:18 XR knee LT 1 or 2V routine CLINICAL HISTORY: pain, twisted COMPARISON: 01/28/2022 FINDINGS: There is mild osteoarthritis. There is a trace joint effusion. No fracture or dislocation. IMPRESSION: No fracture seen. ACT 112: Negative or not required by law. Electronically signed by: Rakesh Palencia M.D. 08/18/2024 1:23 PM Venous Doppler Study 08/18/24 12:18 LEFT LOWER EXTREMITY VENOUS DOPPLER HISTORY: swelling, pain COMPARISON STUDY: None FINDINGS: Duplex and color Doppler evaluation of the deep venous system of the left leg demonstrates no evidence of DVT. The major deep venous channels are patent and compressible. There is no occlusive disease or intraluminal filling defect identified. IMPRESSION: No evidence of DVT . ACT 112: Negative or not required by law. Electronically signed by: Neda Steen M.D. 08/18/2024 2:57 PM Code Status & VTE Plan VTE Prophylaxis Plan VTE Prophylaxis will be ordered: Yes Supervising Physician Co-Signing Physician Notes During face to face encounter, I obtained a history and physical examination, discussed plan of care with patient and answered any questions. I discussed plan of care with JEOVANNY Mcnamara. I reviewed above note and agree with it except for the following: Patient will be admitted for left knee pain. Likely secondary to DJD and severe arthritis. Perhaps this was due to georges's cyst. will consult ortho. PG Care Time/CCT Total # of Minutes Spent Total Time Spent with Patient: Total time spent is greater than 50% in coordination of care (as documented) at patient's floor/unit and/or counseling patient: Coding Level of Care Code 71353 INT INP/OBS CARE 3/75MIN Diagnoses Paroxysmal SVT (supraventricular tachycardia) I47.10 Hypertension I10 Knee pain, acute M25.569 GERD (gastroesophageal reflux disease) K21.9 Hyperlipidemia E78.5 Hemochromatosis E83.119
[2024-08-18] MEDS: traMADol HCL 50 MG TABLET PO PRN (22:29)
[2024-08-19] MEDS: KETOROLAC TROMETHAMINE 15 MG/ML VIAL IV PRN (04:41)
--- NOTE | 2024-08-19 07:40 | Orthopedic Consultation ---
Date of Service August 19, 2024 Assessment & Plan (1) Ruptured Bakers cyst: (2) Left knee pain: (3) Left knee DJD: Plan Patient is being consulted today for left knee pain that has been ongoing for the last 12 days and worsened when she lifted her left leg over her right leg yesterday. Please see below for plan: - I do believe that the patient may have experienced a ruptured Georges's cyst. Did explain to the patient that Georges's cyst or a product of arthritic/degenerative changes in joints, specifically the left knee in this case. She is having posterior knee pain with posterior calf pain after the sensation of a pop with no significant injury. All images were negative for any acute abnormality. In order to treat her current pain, it would be treating the underlying problem which is left knee osteoarthritis. An acute fix to her problem would be a knee injection, however there are many issues in regards to giving an injection. I recommend no injection today for the following reasons: It throws off her heart rate and rhythm as noted by the patient as well as in previous office visits about 2 years ago. I would also recommend against an injection as she is having issues with her right eye. Per the ophthalmology note on 08/11/2024, they recommended against steroids as it can lead to blindness in her right eye. I did explain to the patient at my visit that I do not feel comfortable giving a corticosteroid injection because of this recommendation from her soap boiler. She did ask that I call her soap boiler and double check. I did speak to her ophthalmology office today. They recommended against steroid injections. I have spoken to her hospitalist for the day. Would recommend pain control without steroids of any kind, early mobilization and follow-up as an outpatient in the orthopedic clinic where possible viscosupplementation can be considered. Patient is aware that viscosupplementation will need to be authorized by her insurance and may take a few weeks. She may be weightbearing as tolerated and range of motion as tolerated in the left lower extremity. I did encourage her to reach out with any questions or concerns. History of Present Illness Reason for Consultation: Left knee pain Requesting Physician: . Attending Physician: Roland Raya MD Claire is a 74year old female who is being consulted today due to persistent left knee pain. She did report to the emergency department on 08/18/2024 for worsening left knee pain. She states that her knee pain began about 12 days ago. She has been starting back up with her physical therapy and states that her left knee began to bother her. She then states that yesterday, she was sitting to change her shoes. She placed her left leg over her right knee and felt a pop in the posterior aspect of her left knee. She states that she did have a Georges's cyst in her right knee at some point, so she is unsure if she has a Georges's cyst in the left knee. She states that it is painful with ambulation and range of motion. To note, she did see Nathan one of our other orthopedic PAs on 04/23/2023. This was for her bilateral knees. They did not do injections at that time. They recommended home exercises, mobilization and rest if needed. She did have a left knee injection on 01/09/2023. This was also by Nathan, however he did lower her dose as she states that she had some adverse reactions with the steroid injection. I did ask her today's visit what this was. She states that it made her heart rate increased. She states that it made her throw PVCs. Also to note, she recently saw ophthalmology in [place]. 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 She did mention to me at today's visit that they recommended no steroids for her. She used to take a steroid inhaler, but they recommended she stops this and should not have any other injections in any part of her body that are steroid related. She would like me to call her soap boiler today to see if she can get an injection in her left knee. She denies any fever, chills or constitutional symptoms. She denies any fall, trauma or eliciting event for her left knee pain. She denies any numbness or tingling going down the left lower extremity. Allergies Allergy/AdvReac Type Severity Reaction Status Date / Time Sulfa (Sulfonamide Allergy Intermediate SWELLING/ Verified 08/18/24 15:46 Antibiotics) ITCHY alprazolam Allergy Unknown Unknown Verified 08/18/24 15:46 Penicillins Allergy Unknown PER PT Verified 08/18/24 15:46 "TESTED NEG, ABLE TO TAKE" erythromycin base AdvReac Intermediate VOMITING Verified 08/18/24 15:46 levothyroxine AdvReac Intermediate palpitation Verified 08/18/24 15:46 s Macrolide Antibiotics AdvReac Intermediate VOMITING Verified 08/18/24 15:46 pravastatin AdvReac Intermediate joint/ Verified 08/18/24 15:46 muscle pain and cramping ciprofloxacin AdvReac Unknown Unknown Verified 08/10/24 11:51 hydrochlorothiazide AdvReac Unknown Unknown Verified 08/10/24 11:51 [From Aldactazide] lisinopril AdvReac Unknown Unknown Verified 08/10/24 11:51 niacin AdvReac Unknown Unknown Verified 08/10/24 11:51 risedronate sodium AdvReac Unknown Unknown Verified 08/10/24 11:51 [From Actonel] simvastatin AdvReac Unknown Unknown Verified 08/10/24 11:51 spironolactone AdvReac Unknown Unknown Verified 08/10/24 11:51 [From Aldactazide] Home Medications Medication Instructions Recorded Confirmed Type calcium 315 mg (as 1 tab PO DAILY ##0 12/25/16 08/18/24 History citrate)-vitamin D3 6.25 mcg (250 unit) tablet fntcswug-fhl-invqpy 5 mg-zeaxanth 1 cap PO DAILY 04/03/20 08/18/24 History 1 mg-bilberry 7.5 mg-herbal capsule ([facility] [facility] Formula) aspirin 81 mg tablet,delayed 81 mg PO QDD 04/10/20 08/18/24 History release calcium carbonate (Tums) 400 mg PO HS dyspepsia 04/09/21 08/18/24 History nystatin-triamcinolone 100,000 1 applic topical BID PRN itching 12/12/22 08/18/24 Rx unit/gram-0.1 % topical ointment #15 grams omeprazole 20 mg capsule,delayed 20 mg PO DAILY #90 tabs 08/08/24 08/18/24 Rx release metoprolol tartrate 25 mg tablet 12.5 mg (1/2 x 25 mg) PO BID 08/10/24 08/18/24 Rx palpitations #60 tabs cephalexin 500 mg capsule 500 mg PO BID PRN RECURRENT UTI'S 08/18/24 08/18/24 History cholecalciferol (vitamin D3) 25 75 mcg PO DAILY 08/18/24 08/18/24 History mcg (1,000 unit) capsule (Vitamin D3) losartan 25 mg tablet 25 mg PO QAM 08/18/24 08/18/24 History rosuvastatin 5 mg tablet (Crestor) 5 mg PO 3XWK 08/18/24 08/18/24 History ibuprofen 600 mg tablet 600 mg PO Q6H PRN pain #20 tabs 08/20/24 Rx tramadol 50 mg tablet 50 mg PO Q6H PRN pain #14 tabs 08/20/24 Rx Past Med/Surg History Problem List Left knee pain (Acute) Ambulatory dysfunction (Acute) Left knee DJD Left knee pain Ruptured Bakers cyst Breast lump Paroxysmal SVT (supraventricular tachycardia) Situational stress Metabolic syndrome Hypertension Knee pain, acute Recurrent urinary tract infection GERD (gastroesophageal reflux disease) (Acute) Hyperlipidemia Supraventricular tachycardia, paroxysmal MGUS (monoclonal gammopathy of unknown significance) PVCs (premature ventricular contractions) Osteopenia Gait instability Mitral regurgitation Hemochromatosis Fatigue Situational stress Anxiety Urinary incontinence Synovitis Macular degeneration Lumbar spondylosis Cervical disc disease Bilateral carotid artery disease Degenerative arthritis of knee, bilateral Vaginal atrophy Bursitis of hip, right Palpitations LVH (left ventricular hypertrophy) 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 Obesity Medical History Cataract Near syncope Knee injury Fall Impaired glucose tolerance Urinary tract infection Diastolic dysfunction Vaginal lesion Endometrial polyp TSH excess Hypertensive urgency Hypercholesterolemia Allergic rhinitis Osteoarthritis Surgical History History of bilateral cataract extraction H/O foot surgery History of tooth extraction History of dilatation and curettage Family History Mother Depression Anxiety AA (alcohol abuse) Hypertension COPD (chronic obstructive pulmonary disease) Father Coronary heart disease, Onset Age: 49 Depression Bladder cancer Alcoholism /alcohol abuse Myocardial infarction Dyslipidemia Uncle Colorectal cancer Grandmother (Maternal) Diabetes Osteoarthritis Grandmother (Paternal) Stroke Aunt Heart disease Brother Parkinson disease Hypertension Brother Suicide Epilepsy Sister Depression Hypertension Denies family history of Ovarian cancer Breast cancer Social History Smoking Status: Never smoker Second Hand Exposure: No; Do You Dip or Chew Tobacco: No; Hx Alcohol Use: No Hx Substance Use: No Preferred Language: Iranian Communication Ability: Effective Visual Impairment: Diminished Hearing Ability: Normal Roof Assembler Required: No Beliefs That Will Affect Care: None marital status: Current Living Situation: Spouse current occupational status: retired How many Children do You have: 2 Feels Safe at Home: Yes Childhood Exposure to Second-Hand Smoke: Yes Diet: regular caffeine: Yes Dental Care, Regularly: Yes Physical Activity Frequency: 5-6 Times per Week Seatbelt Use: always Sunscreen Use: Yes Assistive Devices: None Review of Systems All systems reviewed & are unremarkable except as noted in HPI & below. Physical Exam General: Alert and oriented. No acute distress. Constitutional WD/WN, vitals as above Musculoskeletal Left knee: Inspection does not reveal any erythema, edema in the left lower extremity, open wounds or noticeable deformity. She is mildly tender to the medial joint line and the lateral joint line. She is mildly tender to the posterior aspect of the knee. She is more tender to the posterior calf. Trace joint effusion noted. In regards to range of motion, she is able to flex and extend the knee, however flexion is only able to get to about 40 degrees. She is ligamentously stable on all planes. She is neurovascularly intact in the left lower extremity. Skin no rashes, warm and dry Results & Data Results & Data Laboratory Results . Diagnostic Findings I independently reviewed the imaging studies below. I do agree with both impressions, no acute fracture, however there are degenerative changes noted throughout the knee. Xray Left knee on 08/18/24 FINDINGS: There is mild osteoarthritis. There is a trace joint effusion. No fracture or dislocation. IMPRESSION: No fracture seen. CT left knee on 08/18/2024 FINDINGS: Demineralized appearance of the bones. Dagm-fq-uzyeopzh medial, mild lateral with moderate patellofemoral compartment osteoarthritis. No acute fracture, dislocation. 4 mm ossification within the posterior medial joint space on image 40 of the sagittal series may represent a loose body. Tendons, ligaments and menisci are not well evaluated by CT technique. There is a small joint effusion. Trace Georges's cyst. Arterial calcifications. Mild nonspecific anterior subcutaneous edema. Superficial venous varicosities are noted anteriorly. IMPRESSION: 1. No acute fracture or dislocation. 2. Tricompartmental osteoarthritis, moderate within the patellofemoral joint. 3. Small joint effusion. PG Care Time/CCT Total # of Minutes Spent Total Time Spent with Patient: Total time spent is greater than 50% in coordination of care (as documented) at patient's floor/unit and/or counseling patient: Coding Level of Care Code 36320 IN/OBS CONSULT LVL 3,45M Diagnoses Ruptured Bakers cyst M66.0 Left knee pain M25.562 Left knee DJD M17.12
[2024-08-19 08:33] LABS: Hematocrit (blood only) 46.4 % (37.0-47.0); Mean Corpuscular Hemoglobin 31.6 pg (25.0-34.0); Mean Corpuscular Hgb Conc 34.5 g/dL (32.0-36.0); Mean Corpuscular Volume 91.5 fL (80.0-100.0); Mean Platelet Volume 10.6 fL (9.4-12.4); Platelet Count 233 K/uL (130-400); RDW Coefficient of Variation 12.5 % (11.5-14.5); RDW Standard Deviation 41.1 fL (36.4-46.3); Red Blood Count 5.07 M/uL (4.20-5.40)
--- NOTE | 2024-08-19 08:40 | Hospitalist Progress Note ---
Date of Service August 19, 2024 Assessment & Plan (1) Paroxysmal SVT (supraventricular tachycardia): (2) Hypertension: (3) Knee pain, acute: (4) GERD (gastroesophageal reflux disease): (5) Hyperlipidemia: (6) Hemochromatosis: Plan Ms. Borja is a 74 y/o female with PMHx of PVCs/PSVT, Hemochromatosis, HTN, HLD, GERD, MGUS, and Chronic B/L Knee Pain who presents to the ED due to L knee pain and ambulatory dysfunction. #L Knee Pain/Ambulatory Dysfunction: Hx chronic b/l knee pain followed by [facility] ortho w/ prior injections, however noted reaction to injection in the past and was to AVOID per her cook room supervisor. Patient reporting progressive knee pain but also reported she has a rodent/mice problem at home and was going increased activity with cleaning the house more than typical for her. She was attempting to put her shoes on and felt a snap and had difficulty placing weight due to pain. Reported intermittent numbness from knee to big toe, no evidence for foot drop Venous US negative for DVT CT without fracture/dislocation but does note tricompartmental OA/moderate within patellofemoral joint w/ small effusion. Also notes 4mm ossification w/i posterior medial joint space which may represent loose body. Trace carver's cyst (notes she had one on the left in the past), mild nonspecific anterior subcutaneous edema Orthopedics consulted - patient NOT able to get steroid injection, avoiding PO as well per ortho discussion w/ her cook room supervisor given concerns for contribution to blindness given issues in the past. Recs to continue pain control, WB as tolerated and therapy evaluations with plans to arrangee for outpatient orthopedics follow up for viscous injections Tylenol changed to q8h prn as patient declined this AM/reported NOT effective. Tramadol available PO as needed but also having TORADOL IV available and patient reports significant improvement w/ toradol and decreased inflammation/swelling to posterior knee and typically uses ibuprofen. Will continue toradol for now but can convert to ibuprofen as needed at dc and rx 600-800mg tablets. Monitor to increase PPI if needed PT/OT evals placed and CM to follow (discussed w/ them this evening and rx for walker in advance) --> patient ideally wanting home w/ [facility]pt therapy [facility] if therapy evals indicate such. Not really wanting rehab but will see how she does. Req for walker/toilet bars and shower chair Monitor for any worsening, can consider MRI but orthopedics not feeling needed at this time. #HTN: Elevations in hospital, may be related to pain Losartan 25mg HS continued but does report additional 25mg as needed in evening if elevated but did not get last evening but was provided AM 08/19 for BP 184/101 with improvement to 150/77 and will monitor Also has metoprolol BID but to take as needed for hx PVC/PSVT Monitor for adj to regimen #PVCs/PSVT: Continue asa 81mg, metoprolol prn. No palpitations reported/monitor #HLD: Continue Rosuvastatin 5 mg MWF. Could consider holding to see if any improvement but stable renal function on testing/no concerns for rhabdo #GERD: Pantoprazole 40 mg daily once daily - monitor to increased w/ NSAIDs. No issues w/ reflux reported #Hemachromatosis: Stable and follows with hematology DVT Prophylaxis: SCDS, Venous Doppler negative for DVT. Monitor to add chemoproph pending continued inpatient stay. Dispo: continued inpatient stay for pain control and therapy evals. Hopeful dc this weekend with home health therapy pending course. Updated family (daughter/FILEMON) at bedside afternoon 08/19 regarding plan Admission and Anticipated Discharge Date Admission Date: August 18, 2024 Supervising Physician Co-Signing Physician Notes The patient was not seen by me. The chart was reviewed. Case discussed with SMITA Ross. Agree with assessment and plan Subjective Eval this afternoon, family in room. Not able to do steroid injection/PO steroid due to concerns from ophthalmology as discussed w/ orthopedics this morning. Patient aware. She is in good spirits, reports pain control adequate and that toradol effective. Does have carver's cyst on the right in the past, discussed current imaging w/ such on left and suspect some issues from such and benefit from antiinflammatories. She reports some numbness/tingling into her foot but reports that has resolved since getting the antiinflammatories. She typically takes ibuprofen but will avoid combination as same class but can convert to PO tomorrow if improvement. Not really wanting rehab but good results w/ [facility] outpt therapy in past and if pain controlled and ok to do ADLs/cleared by therapy can arrange for outpt PT and dc this weekend. Has not seen PT yet but hopefully by AM. Discussed also wanting OT consult and additional equipment/walker/raised toilet arm bars and shower chair. CM to follow. Physical Exam 2 Physical Exam: General: 74yo female sitting up in bed, family in room, NAD, ice to L posterior knee Head atraumatic, normocephalic, mmm, trachea midline Resp even/unlabored, no wheezing, on room air CV: regular, no significant m/r/g, no pitting edema, calves supple/pulses present GI: +BS, slight distension but soft/NT : no monreal, purewick w/ clear yellow urine MSK/Neuro: L knee with tenderness medial/primarily posterior (?carver cyst), does have some small amt fluid/effusion anteriorly, no cellulitis/warmth, compartments soft, pulses present, cap refill wnl, no foot drop noted. ice pack in place speech clear, not confused, answering questions appropriately Psych: AOx3, cooperative with exam Results & Data Results & Data Vital Signs (Past 12 Hours) Vital Signs Temp Pulse Resp BP Pulse Ox O2 Del Method 08/19/24 07:49 36.5 C 81 18 184/101 H 94 Room Air 08/18/24 20:45 36.7 C 85 18 179/91 H 93 Room Air Laboratory Results 08/19/24 08:19 08/19/24 08:19 Mag 1.9 TSH 4.6, FT4 0.88 PG Care Time/CCT Total # of Minutes Spent Total Time Spent with Patient: Total time spent is greater than 50% in coordination of care (as documented) at patient's floor/unit and/or counseling patient: Coding Level of Care Code 29972 SUB INP/OBS CARE 3/50MIN Diagnoses Paroxysmal SVT (supraventricular tachycardia) I47.10 Hypertension I10 Knee pain, acute M25.569 GERD (gastroesophageal reflux disease) K21.9 Hyperlipidemia E78.5 Hemochromatosis E83.119
[2024-08-19] MEDS: LOSARTAN POTASSIUM 25 MG TAB PO ONE (08:42)
[2024-08-19] MEDS: CEROVITE ADV FORMULA TAB PO SCH (08:43)
[2024-08-19] MEDS: CHOLECALCIFEROL 25 MCG (1000 UNITS) TAB PO SCH (08:43)
[2024-08-19] MEDS: PANTOprazole 40 MG TAB PO SCH (08:44)
[2024-08-19] MEDS: CALCIUM 600MG + VIT D 400 IU TAB PO SCH (08:44)
[2024-08-19] MEDS: ROSUVASTATIN CALCIUM 5 MG TAB PO SCH (08:44)
[2024-08-19 08:51] LABS: BUN Creatinine Ratio 14.3 (10-20); Calcium 9.5 mg/dl (8.6-10.3); Creatinine Clr Calc Pharmacy 73.8 ml/min; Magnesium 1.9 mg/dl (1.7-2.4)
[2024-08-19] MEDS ORDERED: LOSARTAN POTASSIUM 25 MG TAB PO SCH (09:00)
[2024-08-19 09:07] LABS: Thyroid Stimulating Hormone 4.623 uIu/ml (0.300-4.500)
[2024-08-19 09:42] LABS: T4 Free Thyroxine 0.88 ng/dl (0.61-1.60)
[2024-08-19] MEDS ORDERED: ACETAMINOPHEN 500 MG TAB PO PRN (11:01)
[2024-08-19] MEDS: ASPIRIN 81 MG ECTAB PO SCH (16:35)
[2024-08-20 07:31] LABS: BUN Creatinine Ratio 22.6 (10-20); Creatinine Clr Calc Pharmacy 67.6 ml/min; Magnesium 1.9 mg/dl (1.7-2.4); Potassium 4.1 mmol/L (3.5-5.1)
--- NOTE | 2024-08-20 08:18 | Hospitalist Progress Note ---
Date of Service August 20, 2024 Assessment & Plan (1) Paroxysmal SVT (supraventricular tachycardia): (2) Hypertension: (3) Knee pain, acute: (4) GERD (gastroesophageal reflux disease): (5) Hyperlipidemia: (6) Hemochromatosis: Plan Ms. Borja is a 74 y/o female with PMHx of PVCs/PSVT, Hemochromatosis, HTN, HLD, GERD, MGUS, and Chronic B/L Knee Pain who presents to the ED due to L knee pain and ambulatory dysfunction. #L Knee Pain/Ambulatory Dysfunction: Hx chronic b/l knee pain followed by [facility] ortho w/ prior injections, however noted reaction to injection in the past and was to AVOID per her kennel manager dog track. Reports progressive knee pain, but also increased activity/cleaning at home recently and attempted to put on shoe and felt pop and difficulty placing weight on it since that time Venous US neg DVT CT without fracture/dislocation, does note tricompartmental OA/moderate w/i patellofemoral joint w/ small effusion, 4mm ossification w/i posterior medial joint space which may represent loose body. Trace carver's cyst (notes she had one on the left in the past), mild nonspecific anterior subcutaneous edema Ortho consulted (see prior note, NOT able to do PO steroid or injection per eye dr) and recs for pain control and outpt viscous injections which can be arranged in follow up Pain control: tylenol not effective and changed to prn. Tramadol PO available but best results w/ Toradol IV (reports uses ibuprofen at home) and will make SCHEDULED for today and can convert to PO NSAID at dc. Monitor for any GI issues but appears stable Consideration for MRI if ongoing issues but is improving and will monitor on repeat exam PT/OT consults pending, patient hopeful for outpt therapy arranged through [facility] and hopefully able to dc tomorrow w/ outpatient follow up. #HTN - elevations in hospital suspected related to pain but did give additional 25mg losartan for BP 5/16 as takes at home and is stable 151/68 in hospital in setting of pain. Does have rx for metoprolol but reports not taking and only uses prn w/ Dr Ghotra and declined while inpatient Monitor for issues #PVCs/PSVT- hx of such. Remains on ASA 81mg, metoprolol prn. No palpitations reported/monitor and has declined BB as above #HLD- continued on Rosuvastatin 5 mg MWF. Consider holding dose to see if any improvement but will be off for the weekend. #GERD-Pantoprazole 40 mg daily once daily No issues w/ reflux reported at this time but monitor to increase w/ ongoing NSAIDs #Hemachromatosis -Stable and follows with hematology DVT Prophylaxis: SCDS, Venous Doppler negative for DVT. Added heparin SQ BID given continued inpatient stay Dispo: continue pain control, scheduled toradol q6h. Therapy evals pending and hopeful dc 08/21 with outpt therapy through [facility]. CM to follow. Family updated bedside 08/19 Admission and Anticipated Discharge Date Admission Date: August 18, 2024 Supervising Physician Co-Signing Physician Notes The patient was not seen by me. The chart was reviewed. Case discussed with SMITA Ross. Agree with assessment and plan Subjective Eval this morning, reporting pain improving. Still having some difficulty w/ ROM but was able to ambulate in the room today. Not yet seen by therapy, reports toradol effective but feels like would benefit from scheduled and monitoring overnight and will plan for dc in AM on antiinflammatory agent w/ oral pain control w/ outpt therapy tomorrow pending therapy recs. No fever/chills, CP/SOB reported. Questions/concerns addressed at this time. Physical Exam 2 Physical Exam: General: 74yo female sitting up in bed, NAD, appears comfortable/improved Head atraumatic, normocephalic, mmm Resp even/unlabored, no wheezing, on room air CV: regular, no significant m/r/g, no pitting edema, calves supple/pulses present GI: +BS, slight distension but soft/NT : no monreal, purewick w/ clear yellow urine MSK/Neuro: L knee with tenderness medial/primarily posterior, improved, slight reduced ROM due to pain but sensation intact, less fluid anteriorly, no erythema/warmth, ice pack in place, no foot drop speech clear, not confused, answering questions appropriately Psych: AOx3, cooperative with exam Results & Data Results & Data Vital Signs (Past 12 Hours) Vital Signs Temp Pulse Resp BP Pulse Ox O2 Del Method 08/20/24 07:21 36.5 C 73 18 151/68 H 93 Room Air 08/19/24 20:25 36.7 C 75 18 151/76 H 93 Room Air Laboratory Results 08/19/24 08:19 08/20/24 06:31 Mag 1.9 PG Care Time/CCT Total # of Minutes Spent Total Time Spent with Patient: Total time spent is greater than 50% in coordination of care (as documented) at patient's floor/unit and/or counseling patient: Coding Level of Care Code 64020 SUB INP/OBS CARE 3/50MIN Diagnoses Paroxysmal SVT (supraventricular tachycardia) I47.10 Hypertension I10 Knee pain, acute M25.569 GERD (gastroesophageal reflux disease) K21.9 Hyperlipidemia E78.5 Hemochromatosis E83.119
[2024-08-20] MEDS: KETOROLAC TROMETHAMINE 15 MG/ML VIAL IV SCH (12:41)
[2024-08-20 19:08] VITALS: RESP 18; TEMP 97.9
[2024-08-20] MEDS: HEPARIN SOD 5,000 UNIT/0.5 ML VIAL SQ SCH (20:25)
[2024-08-21 07:42] VITALS: BP 164/85; PULSE 70; O2SAT 94
[2024-08-21 08:18] LABS: BUN Creatinine Ratio 25.9 (10-20); Creatinine Clr Calc Pharmacy 66.8 ml/min; Potassium 3.9 mmol/L (3.5-5.1)
--- NOTE | 2024-08-21 08:57 | Hospitalist Progress Note ---
Date of Service August 21, 2024 Assessment & Plan (1) Paroxysmal SVT (supraventricular tachycardia): (2) Hypertension: (3) Knee pain, acute: (4) GERD (gastroesophageal reflux disease): (5) Hyperlipidemia: (6) Hemochromatosis: Plan Ms. Borja is a 74 y/o female with PMHx of PVCs/PSVT, Hemochromatosis, HTN, HLD, GERD, MGUS, and Chronic B/L Knee Pain who presents to the ED due to L knee pain and ambulatory dysfunction. #L Knee Pain/Ambulatory Dysfunction: Hx chronic b/l knee pain followed by [facility] ortho w/ prior injections, however noted reaction to injection in the past and was to AVOID per her line assembler. Reports progressive knee pain, but also increased activity/cleaning at home recently and attempted to put on shoe and felt pop and difficulty placing weight on it since that time Venous US neg DVT CT without fracture/dislocation, does note tricompartmental OA/moderate w/i patellofemoral joint w/ small effusion, 4mm ossification w/i posterior medial joint space which may represent loose body. Trace carver's cyst (notes she had one on the left in the past), mild nonspecific anterior subcutaneous edema Ortho consulted (see prior note, NOT able to do PO steroid or injection per eye dr) and recs for pain control and outpt viscous injections which can be arranged in follow up Pain control: tylenol not effective and changed to prn. Tramadol PO available but best results w/ Toradol IV (reports uses ibuprofen at home) and will make SCHEDULED for today and can convert to PO NSAID at dc. Monitor for any GI issues but appears stable Consideration for MRI if ongoing issues but is improving and will monitor on repeat exam PT/OT consults pending, patient hopeful for outpt therapy arranged through [facility] and hopefully able to dc tomorrow w/ outpatient follow up. #HTN - elevations in hospital suspected related to pain but did give additional 25mg losartan for BP 5/16 as takes at home and is stable 151/68 in hospital in setting of pain. Does have rx for metoprolol but reports not taking and only uses prn w/ Dr Ghotra and declined while inpatient Monitor for issues #PVCs/PSVT- hx of such. Remains on ASA 81mg, metoprolol prn. No palpitations reported/monitor and has declined BB as above #HLD- continued on Rosuvastatin 5 mg MWF. Consider holding dose to see if any improvement but will be off for the weekend. #GERD-Pantoprazole 40 mg daily once daily No issues w/ reflux reported at this time but monitor to increase w/ ongoing NSAIDs #Hemachromatosis -Stable and follows with hematology DVT Prophylaxis: SCDS, Venous Doppler negative for DVT. Added heparin SQ BID given continued inpatient stay Dispo: continue pain control, scheduled toradol q6h. Therapy evals pending and hopeful dc 08/21 with outpt therapy through [facility]. CM to follow. Family updated bedside 08/19 Admission and Anticipated Discharge Date Admission Date: August 18, 2024 Physical Exam Physical Exam: General: 74yo female sitting up in bed, NAD, appears comfortable/improved Head atraumatic, normocephalic, mmm Resp even/unlabored, no wheezing, on room air CV: regular, no significant m/r/g, no pitting edema, calves supple/pulses present GI: +BS, slight distension but soft/NT : no monreal, purewick w/ clear yellow urine MSK/Neuro: L knee with tenderness medial/primarily posterior, improved, slight reduced ROM due to pain but sensation intact, less fluid anteriorly, no erythema/warmth, ice pack in place, no foot drop speech clear, not confused, answering questions appropriately Psych: AOx3, cooperative with exam Results & Data Results & Data Vital Signs (Past 12 Hours) Vital Signs Temp Pulse Resp BP Pulse Ox O2 Del Method 08/21/24 07:41 36.6 C 70 18 164/85 H 94 Room Air PG Care Time/CCT Total # of Minutes Spent Total Time Spent with Patient: Total time spent is greater than 50% in coordination of care (as documented) at patient's floor/unit and/or counseling patient: Coding Diagnoses Paroxysmal SVT (supraventricular tachycardia) I47.10 Hypertension I10 Knee pain, acute M25.569 GERD (gastroesophageal reflux disease) K21.9 Hyperlipidemia E78.5 Hemochromatosis E83.119
[2024-08-21] MEDS: LOSARTAN POTASSIUM 25 MG TAB PO PRN (09:00)
--- NOTE | 2024-08-21 10:49 | Discharge Summary ---
Discharge Summary Date of Service August 21, 2024 Principal Dx & Hospital Course #1 = Principal Diagnosis (1) Paroxysmal SVT (supraventricular tachycardia): (2) Hypertension: (3) Knee pain, acute: (4) GERD (gastroesophageal reflux disease): (5) Hyperlipidemia: (6) Hemochromatosis: Plan Ms. Borja is a 74 y/o female with PMHx of PVCs/PSVT, Hemochromatosis, HTN, HLD, GERD, MGUS, and Chronic B/L Knee Pain who presents to the ED due to L knee pain and ambulatory dysfunction. #L Knee Pain/Ambulatory Dysfunction: Hx chronic b/l knee pain followed by [facility] ortho w/ prior injections, however noted reaction to injection in the past and was to AVOID per her nursing information systems coordinator. Reports progressive knee pain, but also increased activity/cleaning at home recently and attempted to put on shoe and felt pop and difficulty placing weight on it since that time Venous US neg DVT CT without fracture/dislocation, does note tricompartmental OA/moderate w/i patellofemoral joint w/ small effusion, 4mm ossification w/i posterior medial joint space which may represent loose body. Trace georges's cyst (notes she had one on the left in the past), mild nonspecific anterior subcutaneous edema Ortho consulted (see prior note, NOT able to do PO steroid or injection per eye dr) and recs for pain control and outpt viscous injections which can be arranged in follow up Pain control continued w/ toradol IV given reports best results w/ tylenol and suspect needing antiinflammatory agent for underlying OA. Tramadol available but didn't use much but was sent at al to use prn. Prescription for 600mg q6-8 hours provided and no issues w/ reflux but discussed to monitor and if occur can increase her PPI to BID (on omeprazole at home). Continue ice/heat, elevation. Limit excessive activity Therapy evals undertaken and ok w return home with rx for outpatient physcial therapy which has been provided (pt wanting [facility]) and rx/walker prior to discharge. Discussed to monitor for any worsening issues/pain to return Patient to have follow up with orthopedics at discharge for hopeful viscosupplementation in follow up. #HTN - elevations in hospital suspected related to pain and additioanl losartan 25mg available as uses at home. BP stable 164/85 in hospital setting w/ pain from knee (much improved) but can f/u PCP outpt. Of note, metorpolol ordered but patient declined use/uses prn per Dr Ghotra? #PVCs/PSVT- hx of such. Remained on ASA 81mg, metoprolol prn. No palpitations reported #HLD- Continued on Rosuvastatin 5 mg MWF. Consider holding dose to see if any improvement but will be off for the weekend. #GERD-Pantoprazole 40 mg daily once daily No issues w/ reflux reported at this time but monitor to increase w/ ongoing NSAIDs #Hemochromatosis -Stable and follows with hematology. outpt f/u as needed DVT Prophylaxis: SCDS, Venous Doppler negative for DVT. Added heparin SQ BID given continued inpatient stay Notes For Next Care Provider Monitor for consideration for MRI if any ongoing issues, do suspect aspect of increased activity at home/bakers cyst cause for presentation and much improvment with antiinflammatories, rx ibuprofen 600mg as needed at home and to monitor for any increased reflux Hopeful ortho f/u outpatient for viscosupplementation as not able to get steroid injections w/ issues in the past Consider holding statin in f/u pending repeat eval Medication Changes From Visit Ibuprofen 600mg q8h Tramadol 50mg q4-6h prn (also told her could cut in half if not needing full dose) Admission HPI Per Admitting Provider Ms. Borja is a 74 y/o female with PMHx of PVCs/PSVT, Hemochromatosis, HTN, HLD, GERD, MGUS, and Chronic B/L Knee Pain who presents to the ED due to L knee pain and ambulatory dysfunction. Patient reports she has been doing more housework/cleaning over the past few days and noted increasing L knee pain for approx. 10-12 days. She reports she took her to an appointment and had to walk in cold rain and then her symptoms began. She has been doing home PT exercises but they did not seem to help the discomfort. She was attempting to put on her shoes and felt a sudden snap of the L knee and severe pain. Pain is mostly present in the back of the knee with some mild tenderness to palp. Pain is most noticeable with flexion of the knee. She notes intermittent numbness after the snapping sensation. States she first noticed it more at her bunion but states she can feel it at times from the knee to the big toe. No erythema or warmth. No evidence of foot drop. Due to pain she feels she cannot bear weight. No evidence of DVT on U/S. CT without fracture or dislocation, tricompartmental osteoarthritis/moderate within the patellofemoral joint, small joint effusion. CT does note a 4 mm ossification within the posterior medial joint space that may represent a loose body, trace georges's cyst, mild nonspecific anterior subcut aneous edema. Admission Exam Per Admitting Provider PHYSICAL EXAM General Appearance: WDWN in NAD who is A&O x 3 HEENT: Head is normocephalic/atraumatic; Hearing grossly intact; Mucous membranes moist Neck: Supple; Trachea midline; Neg JVD Heart: RRR with no M/G/R Lungs: CTA in all lung nava bilaterally; Respirations unlabored; Neg accessory muscle use Abdomen: Soft, non-tender, non-distended; Positive BS x 4 quadrants Extremities: Capillary refill < 2 seconds; Neg cyanosis; mild tenderness mostly to medial and posterior palpation of L knee; pain with L knee flexion; no evidence of L foot drop and sensation intact to light touch; bunion to L great toe Neurological: Speech clear; Gross motor/sensory function intact; Neg focal neurologic deficits Psychiatric: Appropriate mood/affect Skin: Normal Color; Warm/Dry Discharge Exam General: 74yo female sitting up in bed, NAD, appears comfortable/improved Head atraumatic, normocephalic, mmm Resp even/unlabored, no wheezing, on room air CV: regular, no significant m/r/g, no pitting edema, calves supple/pulses pr esent GI: +BS, slight distension but soft/NT : no monreal, purewick w/ clear yellow urine MSK/Neuro: L knee with tenderness medial/primarily posterior, much improved, improvement in ROM and sensation intact, trace anterior effusion but no erythema/cellulitis, no pitting edema or calf tenderness, pulses present, ice pack to posterior knee, small bakers cyst appreciated speech clear, not confused, answering questions appropriately Psych: AOx3, cooperative with exam Discharge Plan Discharge Items Patient Disposition: Home - Self-Care Reason For Visit: AMBULATORY DYSFUNCTION; KNEE INJURY Discharge Diagnosis: Ambulatory Dysfunction, Right Knee Osteoarthritis Condition on Discharge: Fair Goals: You have been hospitalized for an acute medical problem. During your stay at [facility], we have made an effort to correct the problem that brought you to the hospital while keeping you as comfortable as possible. Medications were used to bring your condition under control and your discharge instructions will include directions for any medications you should take after leaving the hospital. Please make sure you see your Primary Care Provider as part of your follow up plan. Activity: As commented below Activity Comment: with walker for ambulation Non-emergency contact: Primary Care Provider and Surgeon Call non-emergency contact if: you have any medication questions, your symptoms worsen, your pain is not controlled, your pain is concerning for you and you have a fever Follow-up/Referrals: Jose De Jesus Padilla MD [Surgeon] - Fredis Lunsford MD [Primary Care Provider] - 08/31/24 2:30 pm Diet: Regular Addtl Attending Provider Instructions: You have been hospitalized for left knee pain and difficulty walking. Imaging was negative for acute fracture or blood clot but did note arthritis and some edema as well as georges's cyst to the back of the knee which can become inflamed with the increased activity with cleaning you were doing recently at home. Orthopedics was consulted and unfortunately due to issues with prior steroid injection/eye doctor, have been unable to perform injection and are attempting pain control with medications until able to be seen by orthopedics in follow up to discuss further options in the future. We have used IV Toradol as an anti-inflammatory (same drug class as ibuprofen) and suspect improvement is due to pain being from arthritis. If you have ongoing/worsening pain can consider additional imaging with MRI but in the meantime can continue ibuprofen 600mg every 6-8 hours as needed. Tylenol can be used for non-severe pain as desired and we have also sent additional tramadol to use if needing additional pain control despite the ibuprofen. I have sent 50mg tablets of tramadol but you can cut these in half as well if not needing the full dose but suspect the ibuprofen will be the biggest help. Monitor for any upset stomach/increased reflux while on NSAIDs or for any need need to increase your protonix to twice a day while on this medication and discuss with primary care if occurs. Please monitor for any constipation and can take colace/miralax/senna over the counter if these occur. Please continue ice/elevation as able and increase activity as tolerated but avoid overdoing it please as this can further aggravate symptoms. You have been evaluated by therapy and recommendations are ok to return home with outpatient physical therapy. A prescription for walker has been provided as well as for outpatient physical therapy to take to [facility] for ongoing therapy at discharge. Please follow up with primary care and orthopedics at discharge to monitor your progress in follow up and consideration for viscosupplementation which will need authorized through your insurance and can be arranged in follow up. Please return to the ER for any worsening pain/difficulty walking, fever/chills, or for any other symptoms concerning for you. Pending Studies at Discharge: No Stand-Alone Forms: My [facility], Smoking Cessation Medications and DC Order Prescriptions: New tramadol 50 mg Tablet 50 mg PO Q6H PRN (Reason: pain) Qty: 14 0RF ibuprofen 600 mg tablet 600 mg PO Q6H PRN (Reason: pain) Qty: 20 0RF Continued calcium citrate-vitamin D3 315-250 mg-unit Tablet 1 tab PO DAILY Qty: 0 omeprazole 20 mg capsule,delayed release(DR/EC) 20 mg PO DAILY Qty: 90 3RF aspirin 81 mg tablet,delayed release (DR/EC) 81 mg PO QDD calcium carbonate [Tums] 200 mg calcium (500 mg) tablet,chewable 400 mg PO HS nystatin-triamcinolone 100,000-0.1 unit/gram-% ointment 1 applic topical BID PRN (Reason: itching) Qty: 15 1RF metoprolol tartrate 25 mg tablet 12.5 mg PO BID Qty: 60 5RF Rx Instructions: PER PT "NOT STARTED YET". Macular Health Formula 5-1-7.5 mg Capsule 1 cap PO DAILY cholecalciferol (vitamin D3) [Vitamin D3] 25 mcg (1,000 unit) Capsule 75 mcg PO DAILY cephalexin 500 mg capsule 500 mg PO BID PRN (Reason: RECURRENT UTI'S) losartan 25 mg tablet 25 mg PO QAM Rx Instructions: IF B/P > 140/90, TAKE ADDITIONAL DOSE. rosuvastatin [Crestor] 5 mg tablet 5 mg PO 3XWK Rx Instructions: Mon, Wed, Fri Discontinued ibuprofen [Advil] 200 mg tablet 200 mg PO QAM Rx Instructions: PER PT "TAKES EVERY MORNING, THEN PRN IF NEEDED". Discharge Orders: Discharge Order (Routine); Ordered 08/21/24 Ordered By: Alexandria Funes Admission Data Admit Date/Time: 08/18/24 16:44 Attending Provider: Roland Raya Admit Provider: Dragan Escobedo Primary Care Provider: Fredis Lunsford Other Providers: Dragan Escobedo; Mateo Morrison Other Interventions: Discharge Summary Assessment (RN) Last Done: 08/21/24 12:46 Hospital Stay Data Consultations 08/18/24 15:21 ED Decision to Admit Stat 08/18/24 16:44 Consult Orthopedic Surgery Stat Diagnostic Imagining Performed Knee CT 08/18/24 12:18 CT knee LT wo con HISTORY: 74 years-old Female severe pain, neg xrays in past acute severe pain of the left knee COMPARISON: Radiographs 08/18/2024 TECHNIQUE: Multiple axial CT images of the left knee were obtained without IV contrast. A dose lowering technique was used consistent with the principals of JAMARCUS. FINDINGS: Demineralized appearance of the bones. [id number] medial, mild lateral with moderate patellofemoral compartment osteoarthritis. No acute fracture, dislocation. 4 mm ossification within the posterior medial joint space on image 40 of the sagittal series may represent a loose body. Tendons, ligaments and menisci are not well evaluated by CT technique. There is a small joint effusion. Trace Georges's cyst. Arterial calcifications. Mild nonspecific anterior subcutaneous edema. Superficial venous varicosities are noted anteriorly. IMPRESSION: 1. No acute fracture or dislocation. 2. Tricompartmental osteoarthritis, moderate within the patellofemoral joint. 3. Small joint effusion. ACT 112: Negative or not required by law. The above report was generated using voice recognition software. It may contain grammatical, syntax or spelling errors. Electronically signed by: Ramón Bailey M.D. 08/18/2024 2:55 PM Knee X-Ray 08/18/24 12:18 XR knee LT 1 or 2V routine CLINICAL HISTORY: pain, twisted COMPARISON: 01/28/2022 FINDINGS: There is mild osteoarthritis. There is a trace joint effusion. No fracture or dislocation. IMPRESSION: No fracture seen. ACT 112: Negative or not required by law. Electronically signed by: Rakesh Palencia M.D. 08/18/2024 1:23 PM Venous Doppler Study 08/18/24 12:18 LEFT LOWER EXTREMITY VENOUS DOPPLER HISTORY: swelling, pain COMPARISON STUDY: None FINDINGS: Duplex and color Doppler evaluation of the deep venous system of the left leg demonstrates no evidence of DVT. The major deep venous channels are patent and compressible. There is no occlusive disease or intraluminal filling defect identified. IMPRESSION: No evidence of DVT . ACT 112: Negative or not required by law. Electronically signed by: Neda Steen M.D. 08/18/2024 2:57 PM Pending Results Patient Have Any Pending Studies at Discharge: No Discharge Instructions Given to Patient (Per Discharging Provider) You have been hospitalized for left knee pain and difficulty walking. Imaging was negative for acute fracture or blood clot but did note arthritis and some edema as well as georges's cyst to the back of the knee which can become inflamed with the increased activity with cleaning you were doing recently at home. Orthopedics was consulted and unfortunately due to issues with prior steroid injection/eye doctor, have been unable to perform injection and are attempting pain control with medications until able to be seen by orthopedics in follow up to discuss further options in the future. We have used IV Toradol as an anti-inflammatory (same drug class as ibuprofen) and suspect improvement is due to pain being from arthritis. If you have ongoing/worsening pain can consider additional imaging with MRI but in the meantime can continue ibuprofen 600mg every 6-8 hours as needed. Tylenol can be used for non-severe pain as desired and we have also sent additional tramadol to use if needing additional pain control despite the ibuprofen. I have sent 50mg tablets of tramadol but you can cut these in half as well if not needing the full dose but suspect the ibuprofen will be the biggest help. Monitor for any upset stomach/increased reflux while on NSAIDs or for any need need to increase your protonix to twice a day while on this medication and discuss with primary care if occurs. Please monitor for any constipation and can take colace/miralax/senna over the counter if these occur. Please continue ice/elevation as able and increase activity as tolerated but avoid overdoing it please as this can further aggravate symptoms. You have been evaluated by therapy and recommendations are ok to return home with outpatient physical therapy. A prescription for walker has been provided as well as for outpatient physical therapy to take to [facility] for ongoing therapy at discharge. Please follow up with primary care and orthopedics at discharge to monitor your progress in follow up and consideration for viscosupplementation which will need authorized through your insurance and can be arranged in follow up. Please return to the ER for any worsening pain/difficulty walking, fever/chills, or for any other symptoms concerning for you. Supervising Physician Co-Signing Physician Notes The patient was not seen by me. The chart was reviewed. Case discussed with SMITA Ross. Agree with assessment and plan Total Time Total Time Spent Total Time Spent (In Minutes): 40 Coding Level of Care Code 26072 INP/OBS DISCH >30 MIN Diagnoses Paroxysmal SVT (supraventricular tachycardia) I47.10 Hypertension I10 Knee pain, acute M25.569 GERD (gastroesophageal reflux disease) K21.9 Hyperlipidemia E78.5 Hemochromatosis E83.119
== END 2024-08-21 13:22 | disposition home or self-care (01) | DRG 554 ==
LOC: ED 11:57 → 3W 16:44 → SUATTDRO 16:44 → 3W 17:50
DX: Z88.0 Allergy status to penicillin; E83.119 Hemochromatosis, unspecified; Z68.41 Body mass index [BMI] 40.0-44.9, adult; K21.9 Gastro-esophageal reflux disease without esophagitis; D47.2 Monoclonal gammopathy; E66.01 Morbid (severe) obesity due to excess calories; Z88.2 Allergy status to sulfonamides; M66.0 Rupture of popliteal cyst; I47.19 Other supraventricular tachycardia; E78.5 Hyperlipidemia, unspecified; M17.12 Unilateral primary osteoarthritis, left knee; Z88.1 Allergy status to other antibiotic agents; I10 Essential (primary) hypertension